=== PATIENT | male | born 1985 | race Two or more races ===

== ENCOUNTER 2021-12-20 13:14 | Emergency (ER) | payer SELFPAY ==
--- NOTE | ~2021-12-20 | XR_ITS ---
EXAMINATION: XR SHOULDER, LEFT CLINICAL INFORMATION: Left shoulder pain with limited range of motion. COMPARISON: None TECHNIQUE: Three views of the left shoulder. FINDINGS: The bones and soft tissues are normal. No fracture. Glenohumeral and acromioclavicular alignment is anatomic with normal joint space. No abnormal soft tissue calcifications. XR/XR shoulder LT min 2V IMPRESSION: Unremarkable left shoulder.
[2021-12-20 14:07] VITALS: BP 124/80; PULSE 66; RESP 17; TEMP 36.1; O2SAT 98; BMI 29.0
--- NOTE | 2021-12-20 17:40 | ED.EXTPRO ---
HPI - Extremity Problem General Chief complaint: Extremity Injury, Upper Stated complaint: L shoulder inj Time Seen by Provider: 12/20/21 17:36 Source: patient Mode of arrival: ambulatory Limitations: no limitations History of Present Illness HPI Narrative: Apparently patient was jumping at [employer] [place] yesterday landed in the wrong way since then complaining of pain in left shoulder. Which increases on elevating his left arm above shoulder no motor weakness no numbness or tingling no neck pain no other injuries no prior history of shoulder pain Related Data Previous Rx's Medication Instructions Recorded ibuprofen 600 mg tablet 600 mg PO Q6H PRN pain #40 tabs 12/20/21 Allergies Allergy/AdvReac Type Severity Reaction Status Date / Time No Known Allergies Allergy Verified 12/20/21 17:40 Review of Systems Review of Systems: Yes all other systems are reviewed and are negative [facility] Social History Social History Advance Directives: No Advance Directives Information Provided: Yes Physical Exam Vital Signs: Vital Signs: Last Vital Signs Temp 97 F 12/20/21 14:07 Pulse 66 12/20/21 14:07 Resp 17 12/20/21 14:07 BP 124/80 12/20/21 14:07 Pulse Ox 98 12/20/21 14:07 O2 Del Method 12/20/21 14:07 BMI result Body Mass Index 29.0 Appearance: Alert. Oriented X3. No acute distress. Eyes: PERRLA, No Nystagmus ENT: Pharynx normal. Oral Mucosa moist Neck: Normal inspection. Neck supple. No midline tenderness CVS: Normal heart rate and rhythm. Pulses normal. Respiratory: No respiratory distress. Equal air entry bilateral, Abdomen: Soft and nontender. Bowel sounds are present, no mass palpable, no CVA tenderness Skin: Skin warm and dry. Normal skin color. Normal skin turgor. Extremities: Left shoulder diffuse tenderness in rotator cuff area increases on abduction, open can test please positive for rotator cuff injury Neuro: Oriented X 3. No motor deficit. No sensory deficit. MDM - Extremity (Nontraumatic) MDM Narrative Medical decision making narrative: Clinically patient has left rotator cuff tendinitis will give sling ibuprofen for pain advised to follow with ortho if not better in 2 weeks Discharge Plan Discharge Clinical Impression: Strain of left rotator cuff capsule Patient Disposition: Home, Self-Care Instructions: Rotator Cuff Injury (ED), Rotator Cuff Injury Exercises (DC) Additional Instructions: Wear sling, rest your left shoulder apply ice Ibuprofen for pain Follow with orthopedics if not better Prescriptions: New ibuprofen 600 mg tablet 600 mg PO Q6H PRN (Reason: pain) Qty: 40 0RF Referrals: Harley Bailey MD [Physician] - 2 weeks Stand Alone Forms: Work/School Release
--- OUTSIDE RECORDS SUMMARY | 2021-12-20 17:56 | XMS_ITS | Continuity of Care Document ---
:1985 Author Organization [facility] Address [address] [place] [id number]- Care Team Providers Name Role Phone Not on Staff, PCP Primary Care Physician Unavailable Encounter [facility] Date(s): 02/04/19 - 02/05/[address] [address]- [facility] Discharge Disposition: A-D/C Home Attending Physician: Samantha Frausto MD Admitting Physician: Samantha Frausto MD Referring Physician: Not on Staff, Referring MD Allergies, Adverse Reactions, Alerts Substance Reaction Severity Status NKA Active Medications raNITIdine 150 mg oral capsule 1 capsule = 150 mg, By Mouth, 2 times a day, # 60 capsule, 0 Refills, Maintenance, 11/18/18 14:53:55EDT, Capsule Start Date: 11/18/18 Stop Date: 12/18/18 Status: Ordered Vital Signs Most recent to oldest 1 2 3 [Reference Range]: Weight 94.5 kg 94.5 kg (02/05/19 12:53 AM) (02/04/19 4:23 PM) Oxygen Saturation [94-100 %] 99 % 98 % 100 % (02/05/19 12:53 AM) (02/04/19 6:34 PM) (02/04/19 4: 23 PM) Pulse Rate [55-90 bpm] 71 bpm 96 bpm 90 bpm (02/05/19 12:53 AM) *H* (02/04/19 4:23 PM) (02/04/19 6:34 PM) Blood Pressure [90-138/55-84 140/78 mm Hg 132/70 mm Hg 130 /78 mm Hg mm Hg] *H* (02/04/19 6:34 PM) (02/04/19 4:23 PM) (02/05/19 12:53 AM) Respiratory Rate [16-30 18 br/min 18 br/min 18 br/mi n br/min] (02/05/19 12:53 AM) (02/04/19 6:34 PM) (02/04/19 4: 23 PM) Temperature [96.8-100.4 DegF] 98.2 DegF 97.8 DegF (02/05/19 12:53 AM) (02/04/19 4:23 PM) Mode of Delivery (Oxygen) Room air Room air Room a ir (02/05/19 12:53 AM) (02/04/19 6:34 PM) (02/04/19 4: 23 PM) Blood pressure sites Arm, left Arm, right Arm, left (02/05/19 12:53 AM) (02/04/19 6:34 PM) (02/04/19 4: 23 PM) Temperature Route Oral Oral (02/05/19 12:53 AM) (02/04/19 4:23 PM) Dry Weight 94.5 kg 94.5 kg (02/05/19 12:53 AM) (02/04/19 4:23 PM) Social History Social History Type Response Tobacco Use: 4 or less cigarettes(le ss than 1/4 pack)/day in last 30 days. Sex
--- OUTSIDE RECORDS SUMMARY | 2021-12-20 17:56 | XMS_ITS | Continuity of Care Document ---
:1985 Author Organization [facility] Address [address] [place] [address]- Care Team Providers Name Role Phone Ramin Sauceda MD Primary Care Physician [phone] Encounter [facility] [place] Date(s): 11/23/19 - 11/23/[address] [address]- [facility] Encounter Diagnosis Suspected 2019 novel coronavirus infection (Final) - 11/23/19 Discharge Disposition: A-D/C Home Attending Physician: Noel López MD Admitting Physician: Noel López MD Referring Physician: Not on Staff, Referring MD Allergies, Adverse Reactions, Alerts Substance Reaction Severity Status NKA Active Medications Lidoderm 5% film 1 patch, Topically, Daily, # 30 patch, 0 Refills, Maintenance, 08/23/19 9:23:00 EDT, [id number], 1 patch Topically Daily, 168, cm, 08/23/19 7:33:00 EDT, Height, 100.2, kg, 08/23/19 7:33:00 EDT,Dry Weight Start Date: 08/23/19 Status: OrderedraNITIdine 150 mg oral capsule 1 capsule = 150 mg, By Mouth, 2 times a day, # 60 capsule, 0 Refills, Maintenance, 11/18/18 14:53:55EDT, Capsule Start Date: 11/18/18 Stop Date: 12/18/18 Status: Ordered Vital Signs Most recent to oldest [Reference Range]: 1 2 Oxygen Saturation [94-100 %] 100 % 100 % (11/23/19 12:31 PM) (11/23/19 8:58 AM) Pulse Rate [55-90 bpm] 102 bpm 108 bpm *H* *H* (11/23/19 12:31 PM) (11/23/19 8:58 AM) Blood Pressure [90-138/55-84 mm Hg] 128/77 mm Hg 141/ 81 mm Hg (11/23/19 12:31 PM) *H* (11/23/19 8:58 AM) Respiratory Rate [16-30 br/min] 18 br/min 18 br/mi n (11/23/19 12:31 PM) (11/23/19 8:58 AM) Temperature [96.8-100.4 DegF] 99.2 DegF 99.7 DegF (11/23/19 12:31 PM) (11/23/19 8:58 AM) Mode of Delivery (Oxygen) Room air Room air (11/23/19 12:31 PM) (11/23/19 8:58 AM) Blood pressure sites Arm, right Arm, right (11/23/19 12:31 PM) (11/23/19 8:58 AM) Temperature Route Oral Oral (11/23/19 12:31 PM) (11/23/19 8:58 AM) Social History Social History Type Response Tobacco Use: 4 or less cigarettes(le ss than 1/4 pack)/day in last 30 days. Sex
--- OUTSIDE RECORDS SUMMARY | 2021-12-20 17:57 | XMS_ITS | Continuity of Care Document ---
:1985 Author Organization [facility] Address [address] [place] [address]- Care Team Providers Name Role Phone Ramin Sauceda MD Primary Care Physician [phone] Encounter [facility] [place] Date(s): 07/04/20 - 07/04/[address] [address]- Encounter Diagnosis COVID-19 virus infection (Final) - 07/04/20 Fever (Final) - 07/04/20 Discharge Disposition: A-D/C Home Attending Physician: Alisson Perez MD Admitting Physician: Alisson Perez MD Referring Physician: Not on Staff, Referring MD Allergies, Adverse Reactions, Alerts Substance Reaction Severity Status NKA Active Medications Acetaminophen Tablet 975 mg, Tablet, By Mouth, Once, STAT, 07/04/20 11:30:00 EDT, Stop date 07/04/20 11:30:00 EDT Start Date: 07/04/20 Stop Date: 07/04/20 Status: CompletedBactrim DS 800 mg-160 mg oral tablet 1 tablet, By Mouth, 2 times a day, for 5 days, # 10 tablet, 0 Refills, Acute 07/08/20 11:32:00 EDT, 07/03/20 11:32:00 EDT, Tablet, [id number], Partial fill upon patient request if the prescription is for a schedule II opioid drug., 1 tablet By... Start Date: 07/03/20 Stop Date: 07/08/20 Status: Orderedfenofibrate 48 mg oral tablet 1 capsule, By Mouth, Daily, # 30 capsule, 0 Refills, Maintenance, 05/10/20 10:59:00 EST, Tablet, Partial fill upon patient request if the prescription is for a schedule II opioid drug. Start Date: 05/10/20 Status: Orderedlidocaine 5% topical film 1 patch, Topically, Daily, PRN Pain , Mild, remove after 12 hours, # 10 patch, 0 Refills, Maintenance, 02/01/20 20:04:00 EST, Film, [facility]/pharmacy #[id number], Partial fill upon patient request if the prescription is for a schedule II opioid drug., 1 patch To... Start Date: 02/01/20 Stop Date: 02/08/20 Status: OrderedLidoderm 5% film 1 patch, Topically, Daily, # 30 patch, 0 Refills, Maintenance, 08/23/19 9:23:00 EDT, [facility]/pharmacy #[id number], 1 patch Topically Daily, 168, cm, 08/23/19 7:33:00 EDT, Height, 100.2, kg, 08/23/19 7:33:00 EDT,Dry Weight Start Date: 08/23/19 Status: OrderedmetFORMIN 500 mg oral tablet 1 tablet = 500 mg, By Mouth, 2 times a day, # 60 tablet, 0 Refills, Maintenance, 05/10/20 10:59:00 EST, Tablet, Partial fill upon patient request if the prescription is for a schedule II opioid drug. Start Date: 05/10/20 Status: OrderedoxyCODONE 5 mg oral tablet 5 mg, 1, tablet, By Mouth, Every 6 hours, PRN, for 3 days, For severe pain, # 4 tablet, Refills 0, Tot. Refills 0, Acute 07/06/20 11:31:00 EDT, as needed for pain, 07/03/20 11:31:00 EDT, Route to Pharmacy Electronically, [facility]/pharmacy #[id number], Partial fi... Start Date: 07/03/20 Stop Date: 07/06/20 Status: OrderedraNITIdine 150 mg oral capsule 1 capsule = 150 mg, By Mouth, 2 times a day, # 60 capsule, 0 Refills, Maintenance, 11/18/18 14:53:55EDT, Capsule Start Date: 11/18/18 Stop Date: 12/18/18 Status: OrderedTylenol 325 mg oral tablet 650 mg, 2, tablet, By Mouth, Every 6 hours, PRN, Refills 0, Maintenance, Temperature, 05/11/20 10:14:00 EDT, Partial fill upon patient request if the prescription is for a schedule II opioid drug. Start Date: 05/11/20 Status: Ordered Results Orders for Microbiology Reports Name Date Urine Culture (URINE CULTURE) 07/04/20 Microbiology Reports TEST:Urine Culture STATUS:Unauthenticated BODY SITE: SOURCE:URINE COLLECTED DATE/TIME:07/04/20 1:20 PMUrine Culture SPECIMEN DESCRIPTION : URINE CLEAN CATCH/MIDSTREAM SPECIAL REQUESTS : NONE Reflexed from [id number] REPORT STATUS : PRELIMINARY REPORT Radiology Reports Exam Date Time Procedure Performing Provider Status 07/04/20 8:41 PM Chest Portable Fitting , [place]; Auth (Verified) Notes:(Chest Portable) Reason For Exam: Shortness of BreathRESULT: Chest Portable Chest Portable Hx of Present Illness: temp today; Reason: Shortness of Breath; Clinical Question(s): CHF COMPARISON: 03/20/2020 FINDINGS: LINES AND TUBES: None. LUNGS AND PLEURA: Clear lungs. Normal pulmonary vascularity. No pleural effusion. No pneumothorax. HEART, MEDIASTINUM AND CRISTINE: Heart is normal in size. Normal upper mediastinal and hilar contour. BONES AND SOFT TISSUES: No acute abnormality. IMPRESSION: No acute abnormality. WSN: [id number] Ordering Physician: Andres Lemons Dictated By: Nicola Padilla MD Dictated Date/Time: 07/04/20 8:49 pm Reviewed By: Nicola Padilla MD Signed By: Nicola Padilla MD Signed Date/Time: 07/04/20 8:49 pm Transcribed By: ARAM Transcribed Date/Time: 07/04/20 8:44 pm Vital Signs Most recent to oldest [Reference 1 2 3 Range]: Weight 109 kg 109 kg 109 kg (07/04/20 8:14 PM) (07/04/20 7:03 PM) (07/04/20 4:45 P M) Oxygen Saturation [94-100 %] 95 % 98 % 100 % (07/04/20 11:30 PM) (07/04/20 8:14 PM) (07/04/20 4:29 PM) Pulse Rate [55-90 bpm] 97 bpm 130 bpm 119 bpm *H* *H* *H* (07/04/20 11:30 PM) (07/04/20 8:14 PM) (07/04/20 4:29 PM) Blood Pressure [90-138/55-84 mm 102/51 mm Hg 106/55 mm Hg 138/69 mm Hg Hg] (07/04/20 11:30 PM) (07/04/20 8:14 PM) (07/04/20 4:29 PM) Respiratory Rate [16-30 br/min] 27 br/min 17 br/min 15 br/min (07/04/20 8:14 PM) (07/04/20 4:29 PM) *L* (07/04/20 12:33 PM ) Temperature [96.8-100.4 DegF] 100.9 DegF 99.3 DegF 10 0.7 DegF *H* (07/04/20 8:14 PM) *H* (07/04/20 11:30 PM) (07/04/20 4:13 P M) Mode of Delivery (Oxygen) Room air Room air Room a ir (07/04/20 11:30 PM) (07/04/20 8:14 PM) (07/04/20 4:29 PM) Blood pressure sites Arm, left Arm, left Arm, left (07/04/20 11:30 PM) (07/04/20 8:14 PM) (07/04/20 11:15 AM) Temperature Route Oral Oral Oral (07/04/20 11:30 PM) (07/04/20 8:14 PM) (07/04/20 4:13 PM) Dry Weight 109 kg 109 kg 109 kg (07/04/20 8:14 PM) (07/04/20 7:03 PM) (07/04/20 4:45 P M) Social History Social History Type Response Tobacco Use: 4 or less cigarettes(le ss than 1/4 pack)/day in last 30 days. Sex
--- OUTSIDE RECORDS SUMMARY | 2021-12-20 17:57 | XMS_ITS | Continuity of Care Document ---
:1985 Author Organization [facility] Address [address] [place] [address]- Care Team Providers Name Role Phone Komal WILLIAM, Ramin Primary Care Physician [phone] Encounter [facility] [place] Date(s): 05/07/20 - 05/07/[address] [address]- Discharge Disposition: A-D/C Home Attending Physician: Teresa Santana DO Admitting Physician: Teresa Santana DO Referring Physician: Not on Staff, Referring MD Allergies, Adverse Reactions, Alerts Substance Reaction Severity Status NKA Active Medications lidocaine 5% topical film 1 patch, Topically, Daily, PRN Pain , Mild, remove after 12 hours, # 10 patch, 0 Refills, Maintenance, 02/01/20 20:04:00 EST, Film, [id number], Partial fill upon patient request [...] 7:33:00 EDT,Dry Weight Start Date: 08/23/19 Status: OrderedMotrin Tablet Refills 0, Maintenance, 02/01/20 11:39:00 EST, Partial fill upon patient request if the prescriptionis for a schedule II opioid drug. Start Date: 02/01/20 Status: OrderedraNITIdine 150 mg oral capsule 1 capsule = 150 mg, By Mouth, 2 times a day, # 60 capsule, 0 Refills, Maintenance, 11/18/18 14:53:55EDT, Capsule Start Date: 11/18/18 Stop Date: 12/18/18 Status: Ordered Vital Signs Most recent to oldest 1 2 3 [Reference Range]: Height 168 cm 168 cm (05/07/20 12:12 PM) (05/07/20 11:43 AM) Weight 100.3 kg 100.3 kg (05/07/20 12:12 PM) (05/07/20 11:43 AM) Oxygen Saturation [94-100 %] 99 % 99 % 98 % (05/07/20 4:27 PM) (05/07/20 12:58 PM) (05/07/20 12 :12 PM) Pulse Rate [55-90 bpm] 78 bpm 76 bpm 85 bpm (05/07/20 4:27 PM) (05/07/20 12:58 PM) (05/07/20 12 :12 PM) Body Mass Index [18.5-24.99] 35.54 *>HHI* (05/07/20 11:43 AM) Blood Pressure [90-138/55-84 116/75 mm Hg 121/65 mm Hg 123 /72 mm Hg mm Hg] (05/07/20 4:27 PM) (05/07/20 12:58 PM) (05/07/20 12 :12 PM) Respiratory Rate [16-30 21 br/min 18 br/min 18 br/mi n br/min] (05/07/20 4:27 PM) (05/07/20 12:58 PM) (05/07/20 12 :12 PM) Temperature [96.8-100.4 98.4 DegF DegF] (05/07/20 11:43 AM) Mode of Delivery (Oxygen) Room air Room air Room a ir (05/07/20 4:27 PM) (05/07/20 12:58 PM) (05/07/20 12 :12 PM) Blood pressure sites Arm, right Arm, right Arm, right (05/07/20 4:27 PM) (05/07/20 12:58 PM) (05/07/20 11 :43 AM) Temperature Route Oral Oral (05/07/20 12:12 PM) (05/07/20 11:43 AM) Dry Weight 100.3 kg 100.3 kg (05/07/20 12:12 PM) (05/07/20 11:43 AM) Weight Obtained Via Standing scale (05/07/20 11:43 AM) Dry Weight Obtained Via Standing scale (05/07/20 11:43 AM) Social History Social History Type Response Tobacco Use: 4 or less cigarettes(le ss than 1/4 pack)/day in last 30 days. Sex
--- OUTSIDE RECORDS SUMMARY | 2021-12-20 17:57 | XMS_ITS | Continuity of Care Document ---
:1985 Author Organization [facility] Address [address] [place] [address]- Care Team Providers Name Role Phone Komal WILLIAM, Ramin Primary Care Physician [phone] Encounter [facility] [place] Date(s): 07/03/20 - 07/03/[address] [address]- Discharge Disposition: A-D/C Home Attending Physician: Jayant Castellanos DO Admitting Physician: Jayant Castellanos DO Referring Physician: Not on Staff, Referring MD Allergies, Adverse Reactions, Alerts Substance Reaction Severity Status NKA Active Medications Bactrim DS 800 mg-160 mg oral tablet 1 [...] patch, 0 Refills, Maintenance, 08/23/19 9:23:00 EDT, [facility]/pharmacy #[id number], 1 patch Topically Daily, 168, cm, [...] OrderedoxyCODONE 5 mg oral tablet 5 mg, Tablet, By Mouth, Once, STAT, 07/03/20 10:42:00 EDT, Stop date 07/03/20 10:42:00 EDT Start Date: 07/03/20 Stop Date: 07/03/20 Status: CompletedoxyCODONE 5 mg oral tablet 5 mg, 1, tablet, By Mouth, Every 6 hours, PRN, for 3 days, For severe pain, # 4 tablet, Refills 0, Tot. Refills 0, Acute 07/06/20 11:31:00 EDT, as needed for pain, 07/03/20 11:31:00 EDT, Route to Pharmacy Electronically, [facility]/pharmacy #[id number], Partial fi... Start Date: 07/03/20 Stop [...] opioid drug. Start Date: 05/11/20 Status: Ordered Vital Signs Most recent to oldest [Reference 1 2 3 Range]: Weight 98.3 kg 98.3 kg 98.3 kg (07/03/20 11:11 AM) (07/03/20 9:03 AM) (07/03/20 7:04 AM) Oxygen Saturation [94-100 %] 96 % 98 % 97 % (07/03/20 11:11 AM) (07/03/20 9:03 AM) (07/03/20 7:04 AM) Pulse Rate [55-90 bpm] 89 bpm 90 bpm 84 bpm (07/03/20 11:11 AM) (07/03/20 9:03 AM) (07/03/20 7:04 AM) Blood Pressure [90-138/55-84 mm 117/71 mm Hg 123/77 mm Hg 132/92 mm Hg Hg] (07/03/20 11:11 AM) (07/03/20 9:03 AM) (07/03/20 7:04 AM) Respiratory Rate [16-30 br/min] 18 br/min 18 br/min 18 br/min (07/03/20 11:11 AM) (07/03/20 10:49 AM) (07/03/20 9:03 AM) Temperature [96.8-100.4 DegF] 98.5 DegF 97.8 DegF (07/03/20 9:03 AM) (07/03/20 7:04 AM) Mode of Delivery (Oxygen) Room air Room air Room a ir (07/03/20 11:11 AM) (07/03/20 9:03 AM) (07/03/20 7:04 AM) Blood pressure sites Arm, left Arm, left Arm, left (07/03/20 11:11 AM) (07/03/20 9:03 AM) (07/03/20 7:04 AM) Temperature Route Oral Oral (07/03/20 9:03 AM) (07/03/20 7:04 AM) Dry Weight 98.3 kg 98.3 kg 98.3 kg (07/03/20 11:11 AM) (07/03/20 9:03 AM) (07/03/20 7:04 AM) Social History Social History Type Response Tobacco Use: 4 or less cigarettes(le ss than 1/4 pack)/day in last 30 days. Sex
--- OUTSIDE RECORDS SUMMARY | 2021-12-20 17:57 | XMS_ITS | Continuity of Care Document ---
:1985 Author Organization [facility] Address [address] [place] [address]- Care Team Providers Name Role Phone Not on Staff, PCP Primary Care Physician Unavailable Encounter [facility] [place] Date(s): 09/29/20 - 09/30/[address] [address]- Discharge Disposition: A-D/C Home Attending Physician: Alo Damon MD Admitting Physician: Alo Damon MD Referring Physician: Not on Staff, Referring MD Allergies, Adverse Reactions, Alerts Substance Reaction Severity Status NKA Active Medications fenofibrate 48 mg oral tablet 1 capsule, By [...] II opioid drug. Start Date: 05/10/20 Status: OrderedraNITIdine 150 mg oral capsule 1 [...] oldest [Reference 1 2 3 Range]: Weight 82 kg (09/29/20 10:22 PM) Oxygen Saturation [94-100 %] 100 % 100 % 98 % (09/30/20 10:44 AM) (09/30/20 6:22 AM) (09/30/20 2:15 AM) Pulse Rate [55-90 bpm] 66 bpm 66 bpm 81 bpm (09/30/20 10:44 AM) (09/30/20 6:22 AM) (09/30/20 2:15 AM) Blood Pressure [90-138/55-84 mm 115/62 mm Hg 129/66 mm Hg 122/68 mm Hg Hg] (09/30/20 10:44 AM) (09/30/20 6:22 AM) (09/30/20 2:15 AM) Respiratory Rate [16-30 br/min] 18 br/min 18 br/min 16 br/min (09/30/20 10:44 AM) (09/30/20 6:22 AM) (09/30/20 2:15 AM) Temperature [96.8-100.4 DegF] 98.3 DegF 98.3 DegF 97 .9 DegF (09/30/20 10:44 AM) (09/30/20 6:22 AM) (09/30/20 2:15 AM) Mode of Delivery (Oxygen) Room air Room air Room a ir (09/30/20 6:22 AM) (09/30/20 2:15 AM) (09/29/20 10:22 PM) Blood pressure sites Arm, left (09/29/20 10:22 PM) Temperature Route Oral Oral Oral (09/30/20 6:22 AM) (09/30/20 2:15 AM) (09/29/20 10:22 PM) Dry Weight 82 kg (09/29/20 10:22 PM) Social History Social History Type Response Tobacco Use: 4 or less cigarettes(le ss than 1/4 pack)/day in last 30 days. Sex
--- OUTSIDE RECORDS SUMMARY | 2021-12-20 17:57 | XMS_ITS | Continuity of Care Document ---
:1985 Author Organization [facility] Address [address] [place] [address]- Care Team Providers Name Role Phone Komal WILLIAM, Ramin Primary Care Physician [phone] Encounter [facility] [place] Date(s): 05/09/20 - 05/11/[address] [address]- Encounter Diagnosis Pain in abdomen on palpation (Final) - 05/10/20 Discharge Disposition: A-D/C Home Attending Physician: Jaguar Montes MD Admitting Physician: Madelin Ellison MD Referring Physician: Not on Staff, Referring [...] II opioid drug. Start Date: 05/10/20 Status: OrderedMorPHINE Inj 4 mg, Injection, IV Push Slowly, Every 4 hours for 1 days, PRN for Pain , Moderate, and SBP greater than 100, Routine, 05/10/20 13:55:00 EST, Stop date 05/11/20 13:54:00 EDT Start Date: 05/10/20 Stop Date: 05/11/20 Status: CompletedraNITIdine 150 mg oral capsule 1 capsule = [...] [Reference Range]: Height 168 cm 168 cm 168 cm (05/11/20 3:59 AM) (05/10/20 11:03 PM) (05/10/20 7: 21 PM) Weight 82 kg 82.1 kg 82 kg (05/10/20 10:33 AM) (05/10/20 8:48 AM) (05/10/20 5: 14 AM) Oxygen Saturation [94-100 %] 97 % 100 % 96 % (05/11/20 6:24 AM) (05/11/20 3:59 AM) (05/10/20 11: 03 PM) Pulse Rate [55-90 bpm] 61 bpm 57 bpm 57 bpm (05/11/20 6:24 AM) (05/11/20 3:59 AM) (05/10/20 11: 03 PM) Body Mass Index [18.5-24.99] 29.05 *H* (05/10/20 10:33 AM) Blood Pressure [90-138/55-84 115/41 mm Hg 103/57 mm Hg 114 /50 mm Hg mm Hg] (05/11/20 6:24 AM) (05/11/20 3:59 AM) (05/10/20 11: 03 PM) Respiratory Rate [16-30 16 br/min 16 br/min 16 br/mi n br/min] (05/11/20 9:26 AM) (05/11/20 8:56 AM) (05/11/20 7:3 4 AM) Temperature [96.8-100.4 97.8 DegF 98.0 DegF 97.6 Deg F DegF] (05/11/20 6:24 AM) (05/11/20 3:59 AM) (05/10/20 11: 03 PM) Mode of Delivery (Oxygen) Room air Room air Room a ir (05/11/20 6:24 AM) (05/11/20 3:59 AM) (05/10/20 11: 03 PM) Blood pressure sites Arm, left Arm, right Arm, left (05/11/20 6:24 AM) (05/11/20 3:59 AM) (05/10/20 11: 03 PM) Temperature Route Oral Oral Oral (05/11/20 6:24 AM) (05/11/20 3:59 AM) (05/10/20 11: 03 PM) Dry Weight 82 kg 82 kg 82 kg (05/10/20 10:33 AM) (05/10/20 5:14 AM) (05/10/20 1: 01 AM) Weight Obtained Via Bed scale (05/10/20 8:48 AM) Social History Social History Type Response Tobacco Use: 4 or less cigarettes(le ss than 1/4 pack)/day in last 30 days. Sex
--- OUTSIDE RECORDS SUMMARY | 2021-12-20 17:57 | XMS_ITS | Continuity of Care Document ---
:1985 Author Organization [facility] Address [address] [place] [address]- Care Team Providers Name Role Phone Not on Staff, PCP Primary Care Physician Unavailable Encounter [facility] Date(s): 07/13/19 - 07/14/[address] [address]- [facility] Discharge Disposition: A-D/C Walkout Attending Physician: Not on Staff, Attending MD Admitting Physician: Not on Staff, Admitting MD Referring Physician: Not on Staff, Referring MD Allergies, Adverse Reactions, Alerts Substance Reaction Severity Status NKA Active Medications raNITIdine 150 mg oral capsule 1 capsule = 150 mg, By Mouth, 2 times a day, # 60 capsule, 0 Refills, Maintenance, 11/18/18 14:53:55EDT, Capsule Start Date: 11/18/18 Stop Date: 12/18/18 Status: Ordered Vital Signs Most recent to oldest [Reference Range]: 1 2 Weight 98.2 kg (07/13/19 10:44 PM) Oxygen Saturation [94-100 %] 100 % 100 % (07/13/19 10:44 PM) (07/13/19 10:35 PM) Pulse Rate [55-90 bpm] 90 bpm 99 bpm (07/13/19 10:44 PM) *H* (07/13/19 10:35 PM) Blood Pressure [90-138/55-84 mm Hg] 118/80 mm Hg (07/13/19 10:44 PM) Respiratory Rate [16-30 br/min] 18 br/min (07/13/19 10:44 PM) Temperature [96.8-100.4 DegF] 97.9 DegF (07/13/19 10:44 PM) Mode of Delivery (Oxygen) Room air Room air (07/13/19 10:44 PM) (07/13/19 10:35 PM) Blood pressure sites Arm, right (07/13/19 10:44 PM) Temperature Route Oral (07/13/19 10:44 PM) Dry Weight 98.2 kg (07/13/19 10:44 PM) Weight Obtained Via Standing scale (07/13/19 10:44 PM) Dry Weight Obtained Via Standing scale (07/13/19 10:44 PM) Social History Social History Type Response Tobacco Use: 4 or less cigarettes(le ss than 1/4 pack)/day in last 30 days. Sex
--- OUTSIDE RECORDS SUMMARY | 2021-12-20 17:57 | XMS_ITS | Continuity of Care Document ---
:1985 Author Organization [facility] Address [address] [place] [id number]- Care Team Providers Name Role Phone Not on Staff, PCP Primary Care Physician Unavailable Encounter [facility] Date(s): 08/22/19 - 08/23/[address] [address]- [facility] Encounter Diagnosis Back strain (Final) - 08/23/19 Discharge Disposition: A-D/C Home Attending Physician: Bobo Lazar MD Admitting Physician: Bobo Lazar MD Referring Physician: Not on Staff, Referring [...] Date: 11/18/18 Stop Date: 12/18/18 Status: Ordered Results Radiology Reports Exam Date Time Procedure Performing Provider Status 08/22/19 7:38 PM Chest 2 Views Frontal and Lat Alondra Mata (Verified) Notes:(Chest 2 Views Frontal and Lat) Reason For Exam: Chest Pain;Other:RESULT: Chest 2 Views Frontal and Lat Examination: Chest performed on 08/22/2019. History: Chest pain. Findings: Frontal and lateral views of the chest are submitted without comparison. The cardiac and mediastinal silhouettes are within normal limits. The lungs are clear. The osseous and soft tissue structures are unremarkable. Impression: There is no acute cardiopulmonary disease. WSN: [id number] Ordering Physician: Esther Chavez Dictated By: Yaritza Pack MD Dictated Date/Time: 08/22/19 7:42 pm Reviewed By: Yaritza Pack MD Signed By: Yaritza Pack MD Signed Date/Time: 08/22/19 7:42 pm Transcribed By: ARAM Transcribed Date/Time: 08/22/19 7:41 pm Vital Signs Most recent to oldest 1 2 3 [Reference Range]: Height 168 cm 168 cm 168 cm (08/23/19 10:08 AM) (08/23/19 7:33 AM) (08/22/19 3: 07 PM) Weight 100.2 kg 100.2 kg 100.2 kg (08/23/19 10:08 AM) (08/23/19 7:33 AM) (08/22/19 3: 07 PM) Oxygen Saturation [94-100 %] 99 % 100 % 100 % (08/23/19 10:08 AM) (08/23/19 7:33 AM) (08/23/19 5: 57 AM) Pulse Rate [55-90 bpm] 76 bpm 78 bpm 96 bpm (08/23/19 10:08 AM) (08/23/19 7:33 AM) *H* (08/23/19 5:57 AM ) Body Mass Index [18.5-24.99] 35.5 35.5 35. 5 *>HHI* *>HHI* *>HHI* (08/23/19 10:08 AM) (08/23/19 7:33 AM) (08/22/19 3: 07 PM) Blood Pressure [90-138/55-84 128/83 mm Hg 132/75 mm Hg 131 /75 mm Hg mm Hg] (08/23/19 10:08 AM) (08/23/19 7:33 AM) (08/23/19 5: 57 AM) Respiratory Rate [16-30 18 br/min 20 br/min 16 br/mi n br/min] (08/23/19 10:08 AM) (08/23/19 7:33 AM) (08/23/19 5: 57 AM) Temperature [96.8-100.4 DegF] 98.0 DegF 98.0 DegF 98 .1 DegF (08/23/19 7:33 AM) (08/23/19 5:57 AM) (08/23/19 3:4 1 AM) Mode of Delivery (Oxygen) Room air Room air Room a ir (08/23/19 10:08 AM) (08/23/19 7:33 AM) (08/23/19 5: 57 AM) Blood pressure sites Arm, left Arm, right Arm, right (08/23/19 10:08 AM) (08/23/19 7:33 AM) (08/23/19 3: 41 AM) Temperature Route Oral Oral Oral (08/23/19 7:33 AM) (08/23/19 3:41 AM) (08/22/19 3:0 7 PM) Dry Weight 100.2 kg 100.2 kg 100.2 kg (08/23/19 10:08 AM) (08/23/19 7:33 AM) (08/22/19 3: 07 PM) Weight Obtained Via Standing scale (08/22/19 3:07 PM) Dry Weight Obtained Via Standing scale (08/22/19 3:07 PM) Social History Social History Type Response Tobacco Use: 4 or less cigarettes(le ss than 1/4 pack)/day in last 30 days. Sex
--- OUTSIDE RECORDS SUMMARY | 2021-12-20 17:57 | XMS_ITS | Continuity of Care Document ---
:1985 Author Organization [facility] Address [address] [place] [id number]- Care Team Providers Name Role Phone Not on Staff, PCP Primary Care Physician Unavailable [facility]counter [facility] Date(s): 05/[facility]/19 - 05/22/[address] [address]- [facility] Discharge Disposition: A-D/C Home Attending Physician: Gavin Mcmillan MD Admitting Physician: Gavin Mcmillan MD Referring Physician: Not on Staff, Referring MD Allergies, Adverse Reactions, Alerts Substance Reaction Severity Status NKA Active Medications raNITIdine 150 mg oral capsule 1 capsule = 150 mg, By Mouth, 2 times a day, # 60 capsule, 0 Refills, Maintenance, 11/18/18 14:53:55EDT, Capsule Start Date: 11/18/18 Stop Date: 12/18/18 Status: Ordered Vital Signs Most recent to oldest [Reference Range]: 1 Oxygen Saturation [94-100 %] 98 % (05/22/19 5:06 PM) Pulse Rate [55-90 bpm] 103 bpm *H* (05/22/19 5:06 PM) Blood Pressure [90-138/55-84 mm Hg] 127/59 mm Hg (05/22/19 5:06 PM) Respiratory Rate [16-30 br/min] 20 br/min (05/22/19 5:06 PM) Temperature [96.8-100.4 DegF] 98.5 DegF (05/22/19 5:06 PM) Mode of Delivery (Oxygen) Room air (05/22/19 5:06 PM) Blood pressure sites Arm, right (05/22/19 5:06 PM) Temperature Route Oral (05/22/19 5:06 PM) Social History Social History Type Response Tobacco Use: 4 or less cigarettes(le ss than 1/4 pack)/day in last 30 days. Sex
--- OUTSIDE RECORDS SUMMARY | 2021-12-20 17:57 | XMS_ITS | Continuity of Care Document ---
:1985 Author Organization [facility] Address [address] [place] [address]- Care Team Providers Name Role Phone Not on Staff, PCP Primary Care Physician Unavailable Encounter [facility] Date(s): 01/30/21 - 01/30/[address] [address]- Encounter Diagnosis Folliculitis (Final) - 01/30/21 Discharge Disposition: A-D/C Home Attending Physician: Noel López MD Admitting Physician: Noel López MD Referring Physician: Not on Staff, Referring MD Allergies, Adverse Reactions, Alerts Substance Reaction Severity Status NKA Active Medications clindamycin 1% topical solution 1 application, Topically, 2 times a day, apply a thin film to affected area after washing (posteriorscalp, # 30 mL, 0 Refills, Maintenance, 01/30/21 15:50:00 EST, Solution, [id number], Partialfill upon patient request if the prescription is... Start Date: 01/30/21 Stop Date: 02/09/21 Status: Ordereddoxycycline hyclate 100 mg oral capsule 1 capsule = 100 mg, By Mouth, 2 times a day, for 7 days, # 14 capsule, 0 Refills, Acute 02/06/21 15:49:00 EST, 01/30/21 15:49:00 EST, Capsule, [id number], Partial fill upon patient request if the prescription is for a schedule II opioid drug.,... Start Date: 01/30/21 Stop Date: 02/06/21 Status: Orderedfenofibrate 48 mg oral tablet 1 [...] opioid drug. Start Date: 05/11/20 Status: Ordered Problem List Condition Effective Dates Status Health Status Informant Obese class I(Confirmed) Active Vital Signs Most recent to oldest 1 2 3 [Reference Range]: Height 168 cm 168 cm (01/30/21 8:13 AM) (01/30/21 7:11 AM) Weight 95.1 kg 95.1 kg (01/30/21 8:13 AM) (01/30/21 7:11 AM) Oxygen Saturation [94-100 %] 98 % 99 % 98 % (01/30/21 4:05 PM) (01/30/21 8:13 AM) (01/30/21 7:1 1 AM) Pulse Rate [55-90 bpm] 85 bpm 80 bpm 91 bpm (01/30/21 4:05 PM) (01/30/21 8:13 AM) *H* (01/30/21 7:11 AM ) Body Mass Index [18.5-24.99] 33.69 *>HHI* (01/30/21 7:11 AM) Blood Pressure [90-138/55-84 mm 132/71 mm Hg 136/73 mm Hg 133/75 mm Hg Hg] (01/30/21 4:05 PM) (01/30/21 8:13 AM) (01/30/21 7:1 1 AM) Respiratory Rate [16-30 br/min] 18 br/min 16 br/min 18 br/min (01/30/21 4:05 PM) (01/30/21 8:13 AM) (01/30/21 7:1 1 AM) Temperature [96.8-100.4 DegF] 99.4 DegF 98.4 DegF (01/30/21 8:13 AM) (01/30/21 7:11 AM) Mode of Delivery (Oxygen) Room air Room air Room a ir (01/30/21 4:05 PM) (01/30/21 8:13 AM) (01/30/21 7:1 1 AM) Blood pressure sites Arm, right Arm, right Arm, right (01/30/21 4:05 PM) (01/30/21 8:13 AM) (01/30/21 7:1 1 AM) Temperature Route Oral Oral (01/30/21 8:13 AM) (01/30/21 7:11 AM) Dry Weight 95.1 kg 95.1 kg (01/30/21 8:13 AM) (01/30/21 7:11 AM) Weight Obtained Via Standing scale (01/30/21 7:11 AM) Dry Weight Obtained Via Standing scale (01/30/21 7:11 AM) Social History Social History Type Response Tobacco Use: 4 or less cigarettes(le ss than 1/4 pack)/day in last 30 days. Sex
[2021-12-20] MEDS: oxyCODONE HCl Immed Release 5 MG TABLET 10 MG PO (18:10)
== END 2021-12-20 19:03 | disposition home or self-care (01) ==
PROVIDERS: Emergency Provider Internal Medicine
DX: S46.012A Strain of muscle(s) and tendon(s) of the rotator cuff of left shoulder, initial encounter (principal); Y33.XXXA Other specified events, undetermined intent, initial encounter; Y93.9 Activity, unspecified; Y92.9 Unspecified place or not applicable; Y99.9 Unspecified external cause status
CPT/HCPCS: 73030; 99283

== ENCOUNTER 2023-05-04 19:46 | Emergency (ER) | payer MEDICAID, SELFPAY ==
[2023-05-04 19:49] VITALS: BP 141/74; PULSE 87; RESP 18; TEMP 36.6; O2SAT 96; BMI 29.0
[2023-05-04 20:09] LABS: MANUAL DIFF FLAG NO
[2023-05-04 20:11] LABS: Basophils Absolute Auto 0.1 X10*3/uL (0.0-0.2); Basophils Percent Auto 0.6 % (0-2); Eosinophils Absolute Auto 0.1 X10*3/uL (0.0-0.4); Eosinophils Percent Auto 1.3 % (0-4); Hematocrit 39.1 % (42.0-52.0); Hemoglobin 14.1 g/dl (14.0-18.0); Imm Gran Abs Auto 0.02 X10*3/uL (0.00-0.03); Imm Gran Pct Auto 0.2 % (0.0-0.4); Lymphocytes Absolute Auto 2.5 X10*3/uL (1.2-4.9); Lymphocytes Percent Auto 29.1 % (20-40); Mean Corpuscular HGB Conc 36.1 g/dl (31.0-36.0); Mean Corpuscular Hemoglobin 30.6 pg (27.0-33.0); Mean Corpuscular Volume 84.8 fL (80.0-98.0); Mean Platelet Volume 10.7 fL (9.4-12.4); Monocytes Absolute Auto 0.5 X10*3/uL (0.1-1.2); Monocytes Percent Auto 6.1 % (2-11); Neutrophils Absolute Auto 5.4 x10*3/uL (2.0-8.3); Neutrophils Percent Auto 62.7 % (45-73); Platelet Count 226 X10*3/uL (160-400); Red Blood Count 4.61 X10*6/uL (4.60-5.80); Red Cell Distribution Width 11.9 % (11.0-16.0); White Blood Count 8.6 X10*3/uL (4.8-10.8)
[2023-05-04 20:26] LABS: Alanine Aminotransferase 29 U/L (0-40); Albumin Level 4.3 g/dL (3.5-5.0); Alkaline Phosphatase 69 U/L (39-117); Anion Gap 12 (12-20); Aspartate Amino Transferase 25 U/L (5-37); Bilirubin Total 0.4 mg/dL (0.0-1.0); Blood Urea Nitrogen 12 mg/dL (9-16); Calcium 9.6 mg/dL (8.4-10.2); Carbon Dioxide 25 mmol/L (22-29); Chloride 106 mmol/L (96-108); Creatinine Clr Calc Pharmacy 110.3; Estimated Glomerular Filt Rate > 60; Glucose Random 177 mg/dL (60-115); Potassium 3.9 mmol/L (3.3-5.1); Sodium 139 mmol/L (135-145)
[2023-05-04 22:09] VITALS: BP 121/71; PULSE 80; RESP 16; TEMP 36.8; O2SAT 98
--- NOTE | 2023-05-04 22:14 | ED_ITS ---
HPI - Abdominal Pain General Chief Complaint: Abdominal Pain Stated Complaint: abd and back pain, nely when using bathroom Time Seen by Provider: 05/04/23 22:06 Source: patient Mode of arrival: ambulatory Limitations: no limitations History of Present Illness HPI narrative: Patient been constipated for last 1 week complaining of pain in the rectum and moving the bowels with bright red blood today no nausea no vomiting no fever or chills Related Data Previous Rx's Medication Instructions Recorded hydrocortisone acetate 25 mg 25 mg GA BEDTIME #12 ea 05/04/23 rectal suppository (Anusol-HC) polyethylene glycol 3350 17 17 g PO DAILY #510 grams 05/04/23 gram/dose oral powder (Miralax) Allergies Allergy/AdvReac Type Severity Reaction Status Date / Time No Known Allergies Allergy Verified 05/04/23 19:55 Review of Systems Review of Systems Yes all other systems are reviewed and are negative [facility] Social History Social History Smoked in Last 30 Days: No Use of substances other than those prescribed or required for medical reasons: No Advance Directives: No Advance Directives Information Provided: No Physical Exam ED Vital Signs: Vital Signs - 24 hr 05/04/23 19:49 05/04/23 22:09 05/04/23 23:20 Temperature 97.8 F 98.2 F 98 F Pulse Rate 87 80 80 Respiratory Rate 18 16 18 Blood Pressure 141/74 H 121/71 108/57 L Pulse Oximetry 96 98 98 Oxygen Delivery Method Room Air Room Air Room Air BMI result Body Mass Index 29.0 Appearance: Alert. Oriented X3. No acute distress. Eyes: No pallor or icterus ENT: Pharynx normal. Oral Mucosa moist Neck: Normal inspection. Neck supple. CVS: Normal heart rate and rhythm. Pulses normal. Respiratory: No respiratory distress. Equal air entry bilateral, no wheezing/rales/rhonchi Abdomen: Soft and nontender. Bowel sounds are present, no mass palpable, no CVA tenderness rectum: Internal hemorrhoid nonbleeding tender Skin: Skin warm and dry. Normal skin color. Normal skin turgor. Extremities: No lower extremity edema. No calf tenderness Neuro: Oriented X 3. No motor deficit. No sensory deficit.No cerebellar signs , cranial nerves II-XII intact Medical Decision Making Lab Data 05/04/23 20:03 05/04/23 20:03 Labs: Lab Results 05/04/23 05/04/23 Range/Units 20:03 22:17 WBC 8.6 (4.8-10.8) X10*3/uL RBC 4.61 (4.60-5.80) X10*6/uL Hgb 14.1 (14.0-18.0) g/dl Hct 39.1 L (42.0-52.0) % MCV 84.8 (80.0-98.0) fL MCH 30.6 (27.0-33.0) pg MCHC 36.1 H (31.0-36.0) g/dl RDW 11.9 (11.0-16.0) % Plt Count 226 (160-400) X10*3/uL MPV 10.7 (9.4-12.4) fL Immature Gran % (Auto) 0.2 (0.0-0.4) % Neut % (Auto) 62.7 (45-73) % Lymph % (Auto) 29.1 (20-40) % [place] % (Auto) 6.1 (2-11) % Eos % (Auto) 1.3 (0-4) % Baso % (Auto) 0.6 (0-2) % Lymph # (Auto) 2.5 (1.2-4.9) X10*3/uL [place] # (Auto) 0.5 (0.1-1.2) X10*3/uL Eos # (Auto) 0.1 (0.0-0.4) X10*3/uL Baso # (Auto) 0.1 (0.0-0.2) X10*3/uL Abs Immat Gran (auto) 0.02 (0.00-0.03) X10*3/uL Absolute Neuts (auto) 5.4 (2.0-8.3) x10*3/uL Absolute Nucleated RBC 0.000 (0.0-0.012) X10*3/uL Nucleated RBC % (auto) 0.0 (0.0-0.2) /100WBC Sodium 139 (135-145) mmol/L Potassium 3.9 (3.3-5.1) mmol/L Chloride 106 (96-108) mmol/L Carbon Dioxide 25 (22-29) mmol/L Anion Gap 12 (12-20) BUN 12 (9-16) mg/dL Creatinine 0.92 (0.5-1.4) mg/dL Estim Creat Clear Calc 110.3 Estimated GFR > 60 Random Glucose 177 H (60-115) mg/dL Calcium 9.6 (8.4-10.2) mg/dL Total Bilirubin 0.4 (0.0-1.0) mg/dL AST 25 (5-37) U/L ALT 29 (0-40) U/L Alkaline Phosphatase 69 (39-117) U/L Total Protein 8.0 (6.5-8.0) g/dL Albumin 4.3 (3.5-5.0) g/dL Urine Color Yellow Urine Appearance Clear Urine pH 6.0 (5.0-9.0) Ur Specific [place] >= 1.030 H (1.005-1.025) Urine Protein Negative (Neg-Trace) mg/dL Urine Glucose (UA) Negative (Negative) mg/dL Urine Ketones Trace (Negative) mg/dL Urine Blood Negative (Negative) Urine Nitrite Negative (Negative) Ur Leukocyte Esterase Negative (Negative) Urine RBC 0-2 (0-2) /HPF Urine WBC 0-5 (0-5) /HPF Ur Squamous Epith Cells 0-2 (0-2) /HPF Urine Bacteria None Seen (None Seen) Hyaline Casts 0-2 (0-2) /LPF Medications Administered Discontinued Medications Generic Name Dose Route Start Last Admin Trade Name Freq PRN Reason Stop Dose Admin Bisacodyl 10 mg 05/04/23 22:27 05/04/23 22:39 Bisacodyl 5 Mg Tablet.Dr PO 05/04/23 22:28 10 mg ONCE ONE Administration Magnesium Hydroxide 30 ml 05/04/23 22:27 05/04/23 22:39 Milk Of Magnesia 30 Ml Oral.Susp PO 05/04/23 22:28 30 ml ONCE ONE Administration Tramadol HCl 50 mg 05/04/23 23:22 05/04/23 23:27 Tramadol Hcl 50 Mg Tablet PO 05/04/23 23:23 50 mg ONCE ONE Administration Discharge Plan Discharge Clinical Impression: Constipation, Hemorrhoids, internal Patient Disposition: Home, Self-Care Instructions: Constipation (ED), Hemorrhoids (ED) Additional Instructions: Drink plenty of fluids Avoid constipation Medicine for constipation as prescribed Suppository for hemorrhoids Prescriptions: New polyethylene glycol 3350 [Miralax] 17 gram/dose powder 17 g PO DAILY Qty: 510 0RF hydrocortisone acetate [Anusol-HC] 25 mg suppository 25 mg GA BEDTIME Qty: 12 0RF Stand Alone Forms: Work/School Release Interventions: ED Discharge Assessment Last Done: 05/04/23 23:29 Discharge Date/Time: 05/04/23 23:32
[2023-05-04 22:25] LABS: Appearance Urine Clear; Color Urine Yellow; Glucose Urine UA Negative (Negative); Leukocyte Esterase Urine Negative (Negative); Nitrite Urine Negative (Negative); Specific Gravity - Urine >= 1.030 (1.005-1.025); Urine Blood Negative (Negative); Urine Ketones Trace mg/dL (Negative); Urine Protein Negative (Neg-Trace)
[2023-05-04 22:30] LABS: Bacteria Urine None Seen (None Seen); Hyaline Casts Urine 0-2 /LPF (0-2); RBC Urine 0-2 /HPF (0-2); Squamous Epithelial Cell Urine 0-2 /HPF (0-2); WBC Urine 0-5 /HPF (0-5)
[2023-05-04] MEDS: bisacodyL 5 MG TABLET.DR 10 MG PO (22:39)
[2023-05-04] MEDS: Milk of Magnesia 30 ML ORAL.SUSP PO (22:39)
[2023-05-04 23:20] VITALS: BP 108/57; PULSE 80; RESP 18; TEMP 36.6; O2SAT 98
[2023-05-04] MEDS: traMADoL HCL 50 MG TABLET PO (23:27)
== END 2023-05-04 23:32 | disposition home or self-care (01) ==
PROVIDERS: Emergency Provider Internal Medicine
DX: K59.00 Constipation, unspecified (principal); K64.8 Other hemorrhoids
CPT/HCPCS: 36415; 80053; 81001; 85025; 99283; 99284

== ENCOUNTER 2023-08-17 08:11 | Emergency (ER) | payer OTHER, SELFPAY ==
[2023-08-17 08:27] VITALS: BP 123/75; PULSE 79; RESP 18; TEMP 36.6; O2SAT 97; BMI 33.9
--- NOTE | 2023-08-17 09:15 | ED.GENADULT ---
HPI - General Adult General Chief complaint: Skin/Abscess/Foreign Body Stated complaint: Pain near tailbone Time Seen by Provider: 08/17/23 09:14 Source: patient Mode of arrival: ambulatory Limitations: no limitations History of Present Illness ED Provider: Karmen Isabel PA-C HPI narrative: Patient is a 38 year old assigned male at with a history of DM presenting to the emergency department today with an abscess on his buttock. Patient states that over the last 2 days he has noticed a lump on his left buttock that is causing him increased pain Patient denies any dizziness, lightheadedness, abdominal pain, nausea, vomiting, fever, chills, blurry vision, double vision, loss of vision, chest pain, difficulty breathing, shortness of breath, back pain, night sweats, pain with urination, increased urinary frequency, increased urinary urgency, blood in his urine or stool, syncope or a near syncopal episode, recent trauma or falls, bowel incontinence, bladder incontinence, or any other complaints at this time. Onset (ago): day(s) (2) Location: buttocks and left Radiation: non-radiation Severity: mild Severity scale (1-10): 3 Quality: aching and dull Pain Consistency: constant Relieving factors: none Exacerbating factors: none Associated symptoms: denies other symptoms Treatments prior to arrival: none Related Data Previous Rx's ?Medication ?Instructions ?Recorded ibuprofen 600 mg tablet 600 mg PO Q6H PRN pain #40 tabs 12/20/21 hydrocortisone acetate 25 mg 25 mg [place] BEDTIME #12 ea 05/04/23 rectal suppository (Anusol-HC) polyethylene glycol 3350 17 17 g PO DAILY #510 grams 05/04/23 gram/dose oral powder (Miralax) cephalexin 500 mg capsule 500 mg PO Q6H 7 days #28 caps 08/17/23 doxycycline hyclate 100 mg tablet 100 mg PO BID 7 days #14 tabs 08/17/23 Allergies Allergy/AdvReac Type Severity Reaction Status Date / Time No Known Allergies Allergy Verified 08/17/23 08:31 Review of Systems Constitutional: Constitutional: Reports no additional constitutional complaints, Denies chills, Denies fever(s) and Denies night sweats Eyes: Eyes: Reports no additional eye complaints, Denies blurry vision, Denies change in vision, Denies diplopia, Denies eye discharge, Denies loss of vision and Denies eye pain ENT: Denies dizziness Cardiovascular: Cardiovascular: Reports no additional cardiovascular complaints, Denies chest pain, Denies lightheadedness, Denies Loss of Consciousness and Denies dyspnea Respiratory: Respiratory: Reports no additional respiratory complaints and Denies dyspnea Gastrointestinal: Gastrointestinal: Reports no additional gastrointestinal complaints, Denies abdominal pain, Denies melena, Denies hematochezia, Denies change in bowel habits and Denies change in stool character Comments: left buttock pain Genitourinary: Genitourinary: Reports no additional male genitourinary complaints, Denies hematuria, Denies oliguria, Denies difficulty urinating, Denies dysuria, Denies urinary frequency, Denies urinary hesitancy, Denies urinary incontinence and Denies urinary urgency Musculoskeletal: Musculoskeletal: Reports no additional musculoskeletal complaints, Denies numbness and Denies tingling Neurologic: Denies dizziness, Denies loss of vision, Denies numbness and Denies tingling Psychiatric: Psychiatric: Reports no additional psychiatric complaints Endocrine: Endocrine: Reports no additional endocrine complaints Hematologic/Lymphatic: Hematologic/Lymphatic: Reports no additional hematologic/lymphatic complaints Allergic/Immunologic: Allergic/Immunologic: Reports no additional allergic/immunologic complaints PMFSH Past Medical History Attestation statement: The following information was validated with the patient. Source: old records reviewed and nursing notes reviewed Social History Social History Advance Directives: No Advance Directives Information Provided: No Do you have a plan to hurt others: No Plan Physical Exam ED Vital Signs: Vital Signs - 24 hr 08/17/23 08:27 08/17/23 09:59 08/17/23 10:08 Temperature 97.8 F 97.8 F 97.8 F Pulse Rate 79 66 66 Respiratory Rate 18 16 16 Blood Pressure 123/75 121/74 121/74 Pulse Oximetry 97 97 97 Oxygen Delivery Method Room Air Room Air Room Air BMI result Body Mass Index 33.9 Const General: cooperative, no acute distress, alert and awake Nutritional Appearance: well nourished Orientation/consciousness: patient oriented x3 Limitations: no limitations HENMT Head: Yes normal to inspection and Yes atraumatic Ears: hearing grossly normal bilaterally and external ears normal General nose exam: Normal external nose present, no nasal discharge noted and no epistaxis Face and sinus: Yes normal facial exam, No abrasion and No laceration Mouth: Normal oral and palatal mucosa present, no drooling and no muffled voice Eyes General: appearance normal, both eyes and all related structures Periorbital: periorbital findings normal Eyelids: Yes eyelids normal Conjunctivae: conjunctivae normal Pupils: Equal, round and reactive pupils present EOM: EOMs intact bilaterally Neck Neck: Yes normal visual inspection, Yes full ROM and Yes no lymphadenopathy Chest Chest palpation & inspection: normal inspection of the chest Resp Effort & Inspection: normal respiratory effort and able to speak in complete sentences GI Inspection: Yes normal to inspection Skin Full body images: 1. small abscess present - no active draining Neuro General: patient oriented x3 and moves all extremities Cranial nerves: Yes Equal, round and reactive pupils present Cognition (Neuro): normal cognition Motor exam (neuro): 5/5 motor strength present throughout Sensory Exam: Normal double simultaneous stimulation for sensation Coordination: [id number] test normal Extrem General: Yes normal to inspection, Yes full ROM and Yes capillary refill normal Psych Appearance: grossly normal Mental Status: mental status grossly normal Affect: normal affect Attitude: cooperative Thought process: Normal thought process present Thought content: Normal thought content present Insight: Good insight present (Psych) Medications Administered Discontinued Medications Generic Name Dose Route Start Last Admin Trade Name Walt PRN Reason Stop Dose Admin Cephalexin HCl 500 mg 08/17/23 09:29 08/17/23 09:54 Cephalexin 500 Mg Capsule PO 08/17/23 09:30 500 mg ONCE ONE Administration Doxycycline Monohydrate 100 mg 08/17/23 09:29 08/17/23 09:54 Doxycycline Monohydrate 100 Mg Capsule PO 08/17/23 09:30 100 mg ONCE ONE Administration Oxycodone HCl 5 mg 08/17/23 09:29 08/17/23 09:54 Oxycodone Hcl Immed Release 5 Mg Tablet PO 08/17/23 09:30 5 mg ONCE ONE Administration Procedures Abscess I/D Site: other (gluteal cleft) Side (if applicable): left Technique: needle aspiration Amount of fluid expressed (mL): 3 Sent for culture/gram staining?: No Irrigation: No Packing used?: none Medical Decision Making Medical Decision Making MDM Narrative: Patient is a 38 year old assigned male at with a history of DM presenting to the emergency department today with a buttock abscess. Patient's physical exam was as noted in the physical exam portion of this note. I explained my physical exam findings to the patient. I answered all questions asked by the patient. Patient's abscess was drained with a needle, without incident. I stressed the importance of the patient taking his medication as prescribed. I stressed the importance of the patient following up with his primary care provider and a general surgeon. I stressed the importance of the patient returning to the emergency department immediately if his symptoms were to worsen or if he were to develop any dizziness, shortness of breath, difficulty breathing, chest pain, blurry vision, loss of vision, nausea, vomiting, abdominal pain, fever, chills, back pain, or any other complaints. Patient verbalized agreement and understanding with this treatment plan and discharge. Differential Diagnosis Differential Diagnoses: The differential diagnosis associated with the presentation includes Gluteal cleft abscess Pilonidal abscess Buttock abscess Admission/Observation Consideration of admission/observation: Escalation of care including admission/observation considered Patient would have been admitted to the hospital had his clinical presentation warranted hospital admission. Prescription Management I considered prescription management with: Antibiotic (patient prescribed an antibiotic for his pilonidal abscess) Discharge Plan Discharge Clinical Impression: Pilonidal abscess Patient Disposition: Home, Self-Care Instructions: Pilonidal Cyst (ED), Abscess Follow-up (ED) Additional Instructions: Follow up with your primary care provider and a general surgeon. Take your antibiotic as prescribed. Return to the emergency department immediately if your symptoms worsen or if you develop any dizziness, shortness of breath, difficulty breathing, chest pain, blurry vision, loss of vision, nausea, vomiting, abdominal pain, fever, chills, back pain, or any other complaints. Prescriptions: New cephalexin 500 mg capsule 500 mg PO Q6H 7 Days Qty: 28 0RF doxycycline hyclate 100 mg tablet 100 mg PO BID 7 Days Qty: 14 0RF No Action ibuprofen 600 mg tablet 600 mg PO Q6H PRN (Reason: pain) Qty: 40 0RF polyethylene glycol 3350 [Miralax] 17 gram/dose powder 17 g PO DAILY Qty: 510 0RF hydrocortisone acetate [Anusol-HC] 25 mg suppository 25 mg [place] BEDTIME Qty: 12 0RF Referrals: [facility] [place] [facility] Group] (Call to establish and follow up with a general surgeon.) [facility]] (Call to establish and follow up with a primary care provider. If you already have a primary care provider, please follow up with them.) [facility] [place]Provider Group] [facility] [facility] [Provider Group] Stand Alone Forms: Work/School Release Interventions: ED Discharge Assessment Last Done: 08/17/23 10:08 Discharge Date/Time: 08/17/23 10:09 Print Language: Qatari
[2023-08-17] MEDS: oxyCODONE HCl Immed Release 5 MG TABLET PO (09:54)
[2023-08-17] MEDS: Doxycycline Monohydrate 100 MG CAPSULE PO (09:54)
[2023-08-17] MEDS: cephALEXin 500 MG CAPSULE PO (09:54)
[2023-08-17 09:59] VITALS: BP 121/74; PULSE 66; RESP 16; TEMP 36.6; O2SAT 97
[2023-08-17 10:08] VITALS: BP 121/74; PULSE 66; RESP 16; TEMP 36.6; O2SAT 97
== END 2023-08-17 10:09 | disposition home or self-care (01) ==
PROVIDERS: Emergency Provider Emergency Medicine
DX: L02.31 Cutaneous abscess of buttock (principal); Z79.899 Other long term (current) drug therapy
CPT/HCPCS: 10060; 99283; 99284

== ENCOUNTER 2024-05-28 09:46 | Emergency (ER) | payer OTHER, SELFPAY ==
--- NOTE | ~2024-05-28 | XR_ITS ---
EXAMINATION: XR LUMBOSACRAL SPINE XR SACRUM CLINICAL INFORMATION: low back pain COMPARISON: None available. TECHNIQUE: Three views of the lumbosacral spine. 3 views of the sacrum/coccyx. FINDINGS: Trace right convex scoliosis, possibly positional. Normal lordosis. No fracture, compression deformity, traumatic subluxation, or suspicious bone lesion. There is normal alignment. Minimal disc degeneration noted diffusely most significant at L5-S1. Normal facet alignment without significant facet arthropathy. SI joints demonstrate mild periarticular sclerosis right greater than left, possibly indicating underlying inflammatory arthropathy. Correlation with pelvic CT may be of benefit. The sacrum appears intact. Sacral arches are intact. The coccyx is unremarkable in appearance. No soft tissue abnormalities. XR/XR lumbar spine 2-3V IMPRESSION: 1. No acute findings of the lumbar spine or sacrum. Very mild degenerative spondylosis. 2. SI joint findings which may represent inflammatory arthritis. Correlation with bony pelvic CT may be of benefit. Electronically signed by: Noel Cordova MD 05/28/2024 01:08 PM EDT
--- NOTE | ~2024-05-28 | XR_ITS ---
EXAMINATION: XR LUMBOSACRAL SPINE XR SACRUM CLINICAL INFORMATION: low back pain COMPARISON: None available. TECHNIQUE: Three views of the lumbosacral spine. 3 views of the sacrum/coccyx. FINDINGS: Trace right convex scoliosis, possibly positional. Normal lordosis. No fracture, compression deformity, traumatic subluxation, or suspicious bone lesion. There is normal alignment. Minimal disc degeneration noted diffusely most significant at L5-S1. Normal facet alignment without significant facet arthropathy. SI joints demonstrate mild periarticular sclerosis right greater than left, possibly indicating underlying inflammatory arthropathy. Correlation with pelvic CT may be of benefit. The sacrum appears intact. Sacral arches are intact. The coccyx is unremarkable in appearance. No soft tissue abnormalities. XR/XR sacrum coccyx min 2V IMPRESSION: 1. No acute findings of the lumbar spine or sacrum. Very mild degenerative spondylosis. 2. SI joint findings which may represent inflammatory arthritis. Correlation with bony pelvic CT may be of benefit. Electronically signed by: Noel Cordova MD 05/28/2024 01:08 PM EDT
[2024-05-28 10:03] VITALS: BP 113/71; PULSE 82; RESP 16; TEMP 36.3; O2SAT 97; BMI 32.3
--- NOTE | 2024-05-28 13:21 | ED_ITS ---
HPI - General Adult General Chief complaint: Back Pain/Injury Stated complaint: Low Back Pain Time Seen by Provider: 05/28/24 13:02 Source: patient Mode of arrival: ambulatory Limitations: no limitations History of Present Illness ED Provider: Antonio Dveries HPI narrative: 39 yold male with pmh of DM presents to the ED for left low back pain radiating down left leg. Patient fell on ice last month at work and has had pain ever since. Patient denies any IV drug use, immunocompromised disease, chronic steroid use, or urinary/bowel incontinence. Related Data Previous Rx's ?Medication ?Instructions ?Recorded ibuprofen 600 mg tablet 600 mg PO Q6H PRN pain #40 tabs 12/20/21 hydrocortisone acetate 25 mg 25 mg IA BEDTIME #12 ea 05/04/23 rectal suppository (Anusol-HC) polyethylene glycol 3350 17 17 g PO DAILY #510 grams 05/04/23 gram/dose oral powder (Miralax) cephalexin 500 mg capsule 500 mg PO Q6H 7 days #28 caps 08/17/23 doxycycline hyclate 100 mg tablet 100 mg PO BID 7 days #14 tabs 08/17/23 ketorolac 10 mg tablet 10 mg PO Q6H PRN pain 5 days #20 05/28/24 tabs prednisone 20 mg tablet 40 mg (2 x 20 mg) PO DAILY 5 days 05/28/24 #10 tabs Allergies Allergy/AdvReac Type Severity Reaction Status Date / Time No Known Allergies Allergy Verified 05/28/24 10:04 Review of Systems 2 Review of Systems: low back pain Yes all other systems are reviewed and are negative PMFSH Social History Social History Advance Directives: No Advance Directives Information Provided: Yes Physical Exam ED Vital Signs: Vital Signs - 24 hr 05/28/24 10:03 05/28/24 14:02 05/28/24 14:07 Temperature 97.3 F 97.0 F Pulse Rate 82 76 76 Respiratory Rate 16 18 18 Blood Pressure 113/71 131/68 131/68 Pulse Oximetry 97 97 97 Oxygen Delivery Method Room Air Room Air Room Air BMI result Body Mass Index 32.3 Const General: cooperative, healthy appearing, comfortable, no acute distress, well developed, alert, awake and Physically active Orientation/consciousness: patient oriented x3 HENMT Head: Yes normal to inspection, Yes No palpable skull fracture present, Yes normocephalic, Yes atraumatic and No abrasion Eyes General: appearance normal, both eyes and all related structures Visual Hanson: normal visual hanson by confrontation Alignment and Position: alignment normal Periorbital: periorbital findings normal Eyelids: Yes eyelids normal Conjunctivae: conjunctivae normal Sclerae: sclerae normal Corneas: corneas normal Pupils: Equal, round and reactive pupils present EOM: EOMs intact bilaterally Direct Ophthalmoscopy: normal light reflex Neck Neck: Yes normal visual inspection, Yes full ROM, Yes no lymphadenopathy, Yes no meningeal signs, Yes trachea midline, Yes supple, No anterior neck swelling and No tender Chest Chest palpation & inspection: normal inspection of the chest and normal palpation of entire chest wall Resp Effort & Inspection: normal respiratory effort and able to speak in complete sentences Auscultation: clear to auscultation bilaterally Cardio Jugular venous distension: no JVD Heart sounds: S1 normal heart sound present and S2 normal heart sound present GI Inspection: Yes normal to inspection Palpation (GI): Soft to palpation, not firm, nontender, no guarding and not rigid General: Yes no CVA tenderness Back/Spine/Pelvis Back: no CVA tenderness and back tenderness (left lumbar sacroc illiac tendenerness.) Back/spine/pelvis image: 2 1. tenderness on palpation. no rash, ecchymosis, erythema, or crepitus. Skin General skin exam: no rashes or lesions noted, elasticity normal and turgor normal Neuro General: patient oriented x3, gait normal, tone normal, moves all extremities, Normal light touch and pain sensation, no meningeal signs, no focal motor deficits, CN's II-XI intact bilaterally and normal sensation to monofilament Cranial nerves: Yes Equal, round and reactive pupils present Extrem General: Yes normal to inspection, Yes full ROM and Yes capillary refill normal Psych Appearance: grossly normal, well kempt and not disheveled Medications Administered Discontinued Medications Generic Name Dose Route Start Last Admin Trade Name Freq PRN Reason Stop Dose Admin Ketorolac Tromethamine 30 mg 05/28/24 13:19 05/28/24 13:59 Ketorolac Tromethamine 30 Mg/Ml Vial IM 05/28/24 13:20 30 mg ONCE ONE Administration Prednisone 40 mg 05/28/24 13:19 05/28/24 13:59 Prednisone 20 Mg Tablet PO 05/28/24 13:20 40 mg ONCE ONE Administration Medical Decision Making Medical Decision Making [facility] Narrative: 39-year-old male presents to ED for left lower back pain radiating down left lower extremity for about a month after fall. Patient denies any urinary/bowel incontinence, paralysis/ tingling of lower extremity dysuria, hematuria, abdominal pain, nuasea, vomitting, testiuclar pain, or saddle anesthesia. Patient denies any abdominal pain, nausea, or vomitting. Patient states no dysuria or hematuria. 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 NOt suspecting septic joint, cauda equina, epidural abscess, or tenosynovitis. NOt suspecting osteomyelitits, kidney stones, pylonephritits, or any other life threatening eitoloogies. Toradol and prednisonse ordered. patient made aware prednisone may elevate glucose and to stop if glucose gets too elevated. Differential Diagnosis Differential Diagnoses: The differential diagnosis associated with the presentation includes (arhtritis, fracture) Admission/Observation Consideration of admission/observation: Escalation of care including admission/observation considered Independent Interpretation I performed an independent interpretation of an: Plain X-Ray Radiology Impression Discussion of test interpretation with radiology: I have reviewed the radiologist's reading. Independent Historian Clinical information obtained from an independent historian. History obtained from or confirmed by: Other (patient) Prescription Management I considered prescription management with: Pain Medication Discharge Plan Discharge Clinical Impression: Lumbar radiculopathy, Sacroiliitis, Spondylosis Patient Disposition: Home, Self-Care Instructions: Lumbar Radiculopathy (ED), Sacroiliitis (ED) Additional Instructions: Recommend follow-up with your primary care provider for physical therapy referral if needed. Return to the ED immediately for any urinary/bowel incontinence, paralysis weakness of lower extremities, numbness of genital area. Abdominal pain, nausea, vomiting, fever, chills, or any other concerning symptoms. Do Not take aspirin or any other NSAIDs such as Motrin, ibuprofen, naproxen, leave, meloxicam, or celebrex. FINDINGS: Trace right convex scoliosis, possibly positional. Normal lordosis. No fracture, compression deformity, traumatic subluxation, or suspicious bone lesion. There is normal alignment. Minimal disc degeneration noted diffusely most significant at L5-S1. Normal facet alignment without significant facet arthropathy. SI joints demonstrate mild periarticular sclerosis right greater than left, possibly indicating underlying inflammatory arthropathy. Correlation with pelvic CT may be of benefit. The sacrum appears intact. Sacral arches are intact. The coccyx is unremarkable in appearance. No soft tissue abnormalities. XR/XR sacrum coccyx min 2V IMPRESSION: 1. No acute findings of the lumbar spine or sacrum. Very mild degenerative spondylosis. 2. SI joint findings which may represent inflammatory arthritis. Correlation with bony pelvic CT may be of benefit. Electronically signed by: Noel Cordova MD 05/28/2024 01:08 PM EDT RP Dictated By: Noel Cordova MD Signed By: <Electronically signed by Noel Cordova MD in [place]> 05/28/24 1308 Prescriptions: New prednisone 20 mg tablet 40 mg PO DAILY 5 Days Qty: 10 0RF ketorolac 10 mg tablet 10 mg PO Q6H PRN (Reason: pain) 5 Days Qty: 20 0RF Rx Instructions: received 30mg IM in the ED No Action ibuprofen 600 mg tablet 600 mg PO Q6H PRN (Reason: pain) Qty: 40 0RF cephalexin 500 mg capsule 500 mg PO Q6H 7 Days Qty: 28 0RF doxycycline hyclate 100 mg tablet 100 mg PO BID 7 Days Qty: 14 0RF polyethylene glycol 3350 [Miralax] 17 gram/dose powder 17 g PO DAILY Qty: 510 0RF hydrocortisone acetate [Anusol-HC] 25 mg suppository 25 mg IA BEDTIME Qty: 12 0RF Referrals: Jn Sousa MD [Primary Care Provider] - (Back pain) Stand Alone Forms: Work/School Release Interventions: ED Discharge Assessment Last Done: 05/28/24 14:07 Discharge Date/Time: 05/28/24 14:07 Print Language: Anguillan
[2024-05-28] MEDS: predniSONE 20 MG TABLET 40 MG PO (13:59)
[2024-05-28] MEDS: Ketorolac Tromethamine 30 MG/ML VIAL IM (13:59)
[2024-05-28 14:02] VITALS: BP 131/68; PULSE 76; RESP 18; O2SAT 97
[2024-05-28 14:07] VITALS: BP 131/68; PULSE 76; RESP 18; TEMP 36.1; O2SAT 97
--- OUTSIDE RECORDS SUMMARY | 2024-05-28 14:57 | XMS_ITS | Encounter Summary ---
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 Phone Jn Sousa MD Primary Care Provider [phone] Reason for Visit * Reason Onset Date Comments PRIOR AUTHORIZATION 04/25/2024 Encounter Details Date Type Department Care Team (Late st Contact Info) Description 04/25/2024 Telephone Endocrinology - [place] [address] [place] [phone] Noemi Flores PA [address] [place] [address] PRIOR AUTHORIZATION Social History Tobacco Use Types Packs/Day Years Used Date Smoking Tobacco: Former Cigarettes Q uit: 12/30/2023 Smokeless Tobacco: Never Alcohol Use Standard Drinks/Week Comments No 0 (1 standard drink = 0.6 oz pur e alcohol) Interpersonal Safety Answer Date Record ed Physical Abuse 01/12/2024 Verbal Abuse 01/12/2024 Sex and Gender Information Value Date Recorded Sex Assigned at Male 12/22/2023 11:54 AM EDT Legal Sex Male 5:47 AM EST Gender Identity Male 12/22/2023 11:54 AM EDT Sexual Orientation Straight 12/22/2023 11 :54 AM EDT documented as of this encounter Functional Status * Are you deaf or do you have serious difficulty hearing? Answer Date of Assessment Author No 01/22/2024 12:04 AM EST Loretta Bonner RN * Are you blind or do you have serious difficulty seeing, even when wearing glasses? Answer Date of Assessment Author No 01/22/2024 12:04 AM Loretta Agustin RN * Do you have serious difficulty walking or climbing stairs? Answer Date of Assessment Author No 01/22/2024 12:04 AM Loretta Agustin RN * Do you have serious difficulty dressing or bathing? Answer Date of Assessment Author No 01/22/2024 12:04 AM Loretta Agustin RN * Because of a physical, mental, or emotional condition, do you have serious difficulty doing errandsalone such as visiting the doctor? Answer Date of Assessment Author No 01/22/2024 12:04 AM Loretta Agustin RN documented as of this encounter Mental Status * Because of a physical, mental, or emotional condition, do you have serious difficulty concentrating, remembering, or making decisions? (5 years old or older) Answer Entry Date Author No 01/22/2024 12:04 AM Loretta Agustin RN documented in this encounter Progress Notes * Arely Hays [place] - 05/03/2024 2:01 PM EST Pt is on the [employer]. Paid claim on 04/27/24 This is all set. * Amelie Millan - 04/25/2024 12:41 PM EST Prior Authorization for Medication-do not complete and send this encounter unless you have the fax from the pharmacy. Is this a Cover My Meds request: Yes -- [place] Code [id number] Name of Medication INSULIN GLARGINE-YFGN 100U/ML Dose of Medication 100U/ML What is the RX # from the faxed refill? N/A How does patient take this med? N/A What Pharmacy did the fax come from: [facility] Pharm[facility] fax #: [phone] documented in this encounter Plan of Treatment Upcoming Encounters Date Type Department Care Team (Late st Contact Info) Description 06/08/2024 9:40 AM EDT Office Visit Endocrinology [facility] [place], [place] [address] [place] [address] Noemi Flores PA [address] [place] [address] 07/02/2024 10:00 AM EDT Office Visit Internal Medicine - [place] [address] [phone] Jn Sousa MD [address] [address] 07/09/2024 8:00 AM EDT Office Visit General Surgery - [place] 175 [facility] [address] [place] [phone] Rajesh Silva MD [address] [phone] documented as of this encounter Visit Diagnoses Not on filedocumented in this encounter Care Teams Freight Car Repairer Relationship Specialty Start Date End Date Jn Sousa MD [address] [address] PCP - General Internal Medicine 12/30/23 documented as of this encounter
--- OUTSIDE RECORDS SUMMARY | 2024-05-28 14:57 | XMS_ITS | Clinical Summary ---
Author Organization [address] [facility] Address [address] [place] [address] Phone Care Team Providers Care Stores Laborer Name Role Phone Jn Sousa MD Primary Care Provider [phone] Allergies No known active allergies Medications alcohol swabs pads, medicated USE BEFORE CHECKING GLUCOSE 3 TIMES A DAY AND BEFORE INJECTING INSULIN DAILY 4 Active polyethylene glycol (Gavilax) 17 gram/dose oral powder MIX 17 GRAMS DISSOLVED IN WATER AND DRINK BY MOUTH ONCE DAILY 4 Active pen needle, diabetic 31 gauge x 5/16 needle Use one to administer Insulin once daily 4 Active albuterol HFA (Ventolin HFA) 90 mcg/actuation inhaler INHALE 2 PUFFS INTO THE LUNGS 4 TIMES DAILY NEEDED FOR COUGH OR WHEEZING. 4 Active pantoprazole (PROTONIX) 40 mg EC tablet Take 1 tablet (40 mg total) by mouth 1 (one) time each day. Do not crush, chew, or split. 30 each 5 4 07/01/19 25 Active acetaminophen (TYLENOL) 500 mg tablet Take 2 tablets (1,000 mg total) by mouth every 8 (eight) hours. 24 tablet 4 Active docusate sodium (COLACE) 100 mg capsule Take 1 capsule (100 mg total) by mouth 2 (two) times a day. 14 each 4 Active clotrimazole (LOTRIMIN) 1 % cream Apply topically 2 (two) times a day. 30 g 5 5 Active freestyle (FreeStyle Lancets) 28 gauge lancetsIndication s:Uncontrolled type 2 diabetes mellitus with hyperglycemia (CMS/HCC) Test sugars twice daily E11.9 200 each 2 5 Active glucose blood test stripIndications: Uncontrolled type 2 diabetes mellitus with hyperglycemia (CMS/HCC) Test sugars twice daily E11.9 200 each 2 5 Active blood-glucose meter kitIndications:Un controlled type 2 diabetes mellitus with hyperglycemia (CMS/HCC) Test sugars twice daily E11.9 1 kit 1 5 Active blood-glucose sensor (FreeStyle Candace 3 Sensor) deviceIndications :Uncontrolled type 2 diabetes mellitus with hyperglycemia (CMS/HCC) Box = Kit = EA, use one sensor every 14 days. 2 each 3 5 Active insulin lispro (HumaLOG KwikPen Insulin) 100 unit/mL injection pen Use three times a day: <100: 0 units, 101-150: 6 units, 151-200: 8 units, 201-250: 10 units, 251-300: 12 units, 301-350: 13 units, 351-400: 14 units, >400: call me 5 Active atorvastatin (LIPITOR) 20 mg tablet Take 1 tablet (20 mg total) by mouth 1 (one) time each day. 30 each 11 5 04/25/19 26 Active insulin glargine (Lantus Solostar U-100 Insulin) 100 unit/mL (3 mL) injection pen Use 35 units at bedtime daily 30 mL 2 5 Active Active Problems Problem Noted Date Diagnosed Date Anal fissure 01/22/2024 Anal fistula, unspecified 12/22/2023 Syphilis 11/26/2021 Overview (12/23/2023): Treated with doxy bid for 28 days as no showed his injections. Umbilical hernia without obstruction and without gangrene 10/30/2020 Uncontrolled type 2 diabetes mellitus with hyper glycemia 10/30/2020 COVID-19 virus infection 10/15/2020 Overview (12/23/2023): 07/04/2020 [facility] ED Constipation 06/03/2020 Overview (12/23/2023): Last Assessment & Plan: Used prune juice Hepatic steatosis 05/26/2020 GERD (gastroesophageal reflux disease) 9 Overview (12/23/2023): Was in [facility] ER? On zantac Hypertriglyceridemia 12/19/2018 Bipolar 2 disorder 11/05/2018 Overview (12/23/2023): Is not on any treatment in the past. He just took as needed Ambien in the past. Depression 10/17/2018 Encounters Date Type Department Care Team Description 04/25/2024 8:40 AM EST Consult Endocrinology - [address] [phone] Noemi Flores PA Uncontrolled type 2 diabetes mellitus with hyperglycemia (CMS/HCC) (Primary Dx); Hyperglycemia; Candidal balano-posthitis 04/25/2024 Telephone Endocrinology - [address] [phone] Noemi Flores PA PRIOR AUTHORIZATION 04/25/2024 Telephone Endocrinology - [address] [phone] Noemi Flores PA PRIOR AUTHORIZATION 04/02/2024 8:45 AM EST Office Visit General Surgery - [address] [place] [address] Rajesh Silva MD Anal fistula (Primary Dx) 03/02/2024 10:00 AM EST Office Visit Internal Medicine - [place] [address] [facility] [address] [place] [address] Jn Sousa MD Hyperglycemia (Primary Dx); Uncontrolled type 2 diabetes mellitus with hyperglycemia (CMS/HCC); Candidal balano-posthitis from Last 3 Months Immunizations Name Administration Dates Next Due Influenza Quadravalent, MDCK , 0.5ml, preservative free (Flucelvax) 6mo and older 11/26/2021,11/17/2020,11/02/2018 Influenza Quadravalent, MDCK , 0.5ml, with preservative (Flucelvax) 6mo and older 12/06/2019 Influenza trivalent, 0.5mL, preservative free (Fluarix; FluLaval; Fluzone) ages 6mo and older (Afluria) 3 years and older 10/30/2019 Tdap Tetanus diptheria acell ular pertussis (Boostrix; Adacel) 7yo and older 10/06/2023 Surgical History Surgery Date Site/Laterality Comments UPPER GASTROINTESTINAL ENDOSCOPY ABSCESS DRAINAGE michelle-anal Medical History Medical History Date Comments Depression 10/17/2018 DX:Depression History of suicide attempt 10/17/2018 DX:Hi story of suicide attempt GERD (gastroesophageal reflux disease) Diabetes mellitus (CMS/HCC) Asthma Anal fistula Family History Medical History Relation Name Comments Diabetes Mother Other: blood cancer Other Relation Name Status Comments Father Other Mother (Age 40) Other Social History Tobacco Use Types Packs/Day Years Used Date Smoking Tobacco: Former Cigarettes Q uit: 12/30/2023 Smokeless Tobacco: Never Tobacco Cessation:Counseling Given: Not Answered Alcohol Use Standard Drinks/Week Comments No 0 [...] Orientation Straight 12/22/2023 11 :54 AM EDT Obstetrics History Last Filed Vital Signs Vital Sign Reading Time Taken Comments Blood Pressure 120/60 04/25/2024 8:51 AM EST Pulse 80 04/25/2024 8:51 AM EST Temperature 36.3 ??C (97.3 ??F) 04/25/2024 8:51 AM ES T Respiratory Rate 16 04/25/2024 8:51 AM EST Oxygen Saturation 98% 04/25/2024 8:51 AM EST Inhaled Oxygen Concentration - - Weight 93 kg (205 lb) 04/25/2024 8:51 AM EST Height 170.2 cm (5' 7 ) 04/25/2024 8:51 AM EST Body Mass Index 32.11 04/25/2024 8:51 AM EST Plan of Treatment Upcoming Encounters Date Type Department Care Team (Late st Contact Info) Description 06/08/2024 9:40 AM EDT Office Visit Endocrinology [facility] [address] [place] [address] Noemi Flores PA [address] [place] [address] 07/02/2024 10:00 AM EDT Office Visit Internal Medicine - [place] [address] [phone] Jn Sousa MD [address] [address] 07/09/2024 8:00 AM EDT Office Visit General Surgery - [place] [address] [facility] [address] [place] [address] Rajesh Silva MD [address] [address] Health Maintenance Due Date Last Done Comments Diabetes: Annual Foot Exam 05/07/1995 Diabetes: Annual Retina Eye Exam 05/07/1995 Hepatitis B Vaccines (1 of 3 - 19+ 3-dose series) 2004 Pneumococcal Vaccine: Pediatrics (0 to 5 Years) and At-Risk Patients (6 to 64 Years) (1 of 2 - PCV) 2004 Depression Screening 01/31/2022 Social Influencers of Health Screening 01/31/2022 COVID-19 Vaccine ( season) 2023 11/01/2020, 10/04/2020 Influenza Vaccine (#1) 2023 2, 11/17/2020, 12/06/2019, Additional history exists Diabetes: Annual Urine Albumin-Creatinine Ratio (uACR) 10/05/2024 10/06/2023 Diabetes: Blood Sugar Control Test (HGBA1C) 10/23/2024 04/25/2024, 10/06/2023, 10/06/2023 Diabetes: Annual GFR (Glomerular Filtration Rate) 04/25/2025 04/25/2024, 01/21/2024, 10/06/2023, Additional history exists Cholesterol Screening (Lipid Panel) 04/25/2029 04/25/2024, 04/25/2024, 10/06/2023, Additional history exists DTaP,Tdap,and Td Vaccines (2 - Td or Tdap) 10/05/2033 10/06/2023 HIV Screening Completed 10/13/2022 Hepatitis C Screening Completed 10/13/2022 HIB Vaccines Aged Out No longer eligi ble based on patient's age to complete this topic HPV Vaccines Aged Out No longer eligi ble based on patient's age to complete this topic Hepatitis A Vaccines Aged Out No long er eligible based on patient's age to complete this topic IPV Vaccines Aged Out No longer eligi ble based on patient's age to complete this topic MMR Vaccines Aged Out No longer eligi ble based on patient's age to complete this topic Meningococcal ACWY Vaccine Aged Out N o longer eligible based on patient's age to complete this topic Meningococcal B Vacine Aged Out No lo nger eligible based on patient's age to complete this topic RSV Immunization Patients Under 20 months Aged Out No longer eligible based on patient's age to complete this topic Varicella Vaccines Aged Out No longer eligible based on patient's age to complete this topic Procedures Procedure Name Priority Date/Time Associated Diagnosis Comments LDL CHOLESTEROL, DIRECT Routine 04/25/2024 9:39 AM EST Bipolar 2 disorder (CMS/HCC) Routine general medical examination at a health care facility Gastroesophageal reflux disease, unspecified whether esophagitis present Depression, unspecified depression type Anal fistula, unspecified Constipation, unspecified constipation type Uncontrolled type 2 diabetes mellitus with hyperglycemia (CMS/HCC) Hypertriglyceridemia Hepatic steatosis THYROXINE FREE Routine 04/25/2024 9:39 AM EST Bipolar 2 disorder (CMS/HCC) Routine general medical examination at a health care facility Gastroesophageal reflux disease, unspecified whether esophagitis present Depression, unspecified depression type Anal fistula, unspecified Constipation, unspecified constipation type Uncontrolled type 2 diabetes mellitus with hyperglycemia (CMS/HCC) Hypertriglyceridemia Hepatic steatosis LIPID PANEL WITH REFLEX TO DIRECT LDL Routine 04/25/2024 9:39 AM EST Bipolar 2 disorder (CMS/HCC) Routine general medical examination at a health care facility Gastroesophageal reflux disease, unspecified whether esophagitis present Depression, unspecified depression type Anal fistula, unspecified Constipation, unspecified constipation type Uncontrolled type 2 diabetes mellitus with hyperglycemia (CMS/HCC) Hypertriglyceridemia Hepatic steatosis THYROID STIMULATING HORMONE Routine 04/25/2024 9:39 AM EST Bipolar 2 disorder (CMS/HCC) Routine general medical examination at a health care facility Gastroesophageal reflux disease, unspecified whether esophagitis present Depression, unspecified depression type Anal fistula, unspecified Constipation, unspecified constipation type Uncontrolled type 2 diabetes mellitus with hyperglycemia (CMS/HCC) Hypertriglyceridemia Hepatic steatosis CBC WITH AUTO DIFFERENTIAL Routine 04/25/2024 9:39 AM EST Bipolar 2 disorder (CMS/HCC) Routine general medical examination at a health care facility Gastroesophageal reflux disease, unspecified whether esophagitis present Depression, unspecified depression type Anal fistula, unspecified Constipation, unspecified constipation type Uncontrolled type 2 diabetes mellitus with hyperglycemia (CMS/HCC) Hypertriglyceridemia Hepatic steatosis CBC AND DIFFERENTIAL Routine 04/25/2024 9:39 AM EST Bipolar 2 disorder (CMS/HCC) Routine general medical examination at a health care facility Gastroesophageal reflux disease, unspecified whether esophagitis present Depression, unspecified depression type Anal fistula, unspecified Constipation, unspecified constipation type Uncontrolled type 2 diabetes mellitus with hyperglycemia (CMS/HCC) Hypertriglyceridemia Hepatic steatosis MAGNESIUM Routine 04/25/2024 9:39 AM EST Bipolar 2 disorder (CMS/HCC) Routine general medical examination at a health care facility Gastroesophageal reflux disease, unspecified whether esophagitis present Depression, unspecified depression type Anal fistula, unspecified Constipation, unspecified constipation type Uncontrolled type 2 diabetes mellitus with hyperglycemia (CMS/HCC) Hypertriglyceridemia Hepatic steatosis COMPREHENSIVE METABOLIC PANEL Routine 04/25/2024 9:39 AM EST Bipolar 2 disorder (CMS/HCC) Routine general medical examination at a health care facility Gastroesophageal reflux disease, unspecified whether esophagitis present Depression, unspecified depression type Anal fistula, unspecified Constipation, unspecified constipation type Uncontrolled type 2 diabetes mellitus with hyperglycemia (CMS/HCC) Hypertriglyceridemia Hepatic steatosis HEMOGLOBIN A1C Routine 04/25/2024 9:39 AM EST Bipolar 2 disorder (CMS/HCC) Routine general medical examination at a health care facility Gastroesophageal reflux disease, unspecified whether esophagitis present Depression, unspecified depression type Anal fistula, unspecified Constipation, unspecified constipation type Uncontrolled type 2 diabetes mellitus with hyperglycemia (CMS/HCC) Hypertriglyceridemia Hepatic steatosis URINE ALBUMIN CREATININE RATIO Routine 10/06/2023 HEPATITIS C SCREENING Routine 10/13/2022 HIV SCREENING Routine 10/13/2022 from Last 3 Months or Most Recently Relevant to Health Maintenance Results * (ABNORMAL) Lipid panel with reflex to direct LDL (04/25/2024 9:39 AM EST) Cholesterol 219(H) 0 - 200 mg/dL LAB CHEMISTRY METHOD 04/25/2024 1:46 PM [facility] Triglycerides 787(H) 0 - 150 mg/dL LAB CHEMISTRY METHOD 04/25/2024 1:46 PM [facility] Comment:Results verified by repeat testing HDL 34(L) >=40 mg/dL LAB CHEMISTRY METHOD 04/25/2024 1:46 PM [facility] LDL Calculated LAB CHEMISTRY METHOD 04/25/2024 1:46 PM [facility] Comment: Unable to calculate when triglycerides >400 mg/dL. Triglyceride value is >= 500. ??Calculated LDL is not meaningful. ??Direct LDL has been added. VLDL Cholesterol Schuyler LAB CHEMISTRY METHOD 04/25/2024 1:46 PM [facility] Comment:Unable to calculate when triglycerides >400 mg/dL. Non HDL Chol. (LDL+VLDL) LAB CHEMISTRY METHOD 04/25/2024 1:46 PM [facility] Comment:Unable to calculate when triglycerides >400 mg/dL. Chol/HDL Ratio 6.4(H) 0.0 - 4.4 LAB CHEMISTRY METHOD 04/25/2024 1:46 PM [facility] Blood Venous blood specimen / Unknown Venipuncture / Unknown 04/25/2024 9:39 AM EST 04/25/2024 9:39 AM EST us Bernard Leblanc MD LAB BLOOD ORDERABLES Final Resul t [facility] [address] [place] [address], * (ABNORMAL) CBC auto differential (04/25/2024 9:39 AM EST) WBC 6.5 4.8 - 10.8 K/mcL LAB HEMETOLOGY METHOD 04/25/2024 12:29 PM [facility] RBC 5.00 4.50 - 5.50 M/mcL LAB HEMETOLOGY METHOD 04/25/2024 12:29 PM [facility] Hemoglobin 14.7 13.5 - 17.5 g/dL LAB HEMETOLOGY METHOD 04/25/2024 12:29 PM [facility] Hematocrit 43.2 42.0 - 54.0 % LAB HEMETOLOGY METHOD 04/25/2024 12:29 PM [facility] MCV 87.1 79.0 - 98.0 FL LAB HEMETOLOGY METHOD 04/25/2024 12:29 PM [facility] MCH 29.6 27.0 - 32.0 pcg LAB HEMETOLOGY METHOD 04/25/2024 12:29 PM [facility] MCHC 34.0 32.0 - 37.0 g/dL LAB HEMETOLOGY METHOD 04/25/2024 12:29 PM [facility] RDW 11.9 11.0 - 15.0 % LAB HEMETOLOGY METHOD 04/25/2024 12:29 PM [facility] Platelets 214 130 - 400 K/mcL LAB HEMETOLOGY METHOD 04/25/2024 12:29 PM [facility] MPV 11.9(H) 7.0 - 11.0 FL LAB HEMETOLOGY METHOD 04/25/2024 12:29 PM [facility] NRBC 0.0 <1.0 % LAB HEMETOLOGY METHOD 04/25/2024 12:29 PM [facility] NRBC Absolute 0.00 <0.10 K/mcL LAB HEMETOLOGY METHOD 04/25/2024 12:29 PM [facility] Neutrophils Relative 62.4 % LAB HEMETOLOGY METHOD 04/25/2024 12:29 PM [facility] Lymphocytes Relative 28.3 % LAB HEMETOLOGY METHOD 04/25/2024 12:29 PM [facility] Monocytes Relative 7.3 % LAB HEMETOLOGY METHOD 04/25/2024 12:29 PM [facility] Eosinophils Relative 0.9 % LAB HEMETOLOGY METHOD 04/25/2024 12:29 PM [facility] Basophils Relative 0.6 % LAB HEMETOLOGY METHOD 04/25/2024 12:29 PM [facility] Immature Granulocytes Relative 0.5 % LAB HEMETOLOGY METHOD 04/25/2024 12:29 PM [facility] Neutrophils Absolute 4.08 1.50 - 7.00 K/mcL LAB HEMETOLOGY METHOD 04/25/2024 12:29 PM [facility] Lymphocytes Absolute 1.85 1.00 - 5.00 K/mcL LAB HEMETOLOGY METHOD 04/25/2024 12:29 PM [facility] Monocytes Absolute 0.48 0.20 - 1.00 K/mcL LAB HEMETOLOGY METHOD 04/25/2024 12:29 PM EST [facility] Eosinophils Absolute 0.06 0.00 - 0.50 K/[facility] LAB HEMETOLOGY METHOD 04/25/2024 12:29 PM EST [facility] Basophils Absolute 0.04 0.00 - 0.20 K/[facility] LAB HEMETOLOGY METHOD 04/25/2024 12:29 PM EST [facility] Immature Granulocytes Absolute 0.03 0.00 - 0.03 K/[facility] LAB HEMETOLOGY METHOD 04/25/2024 12:29 PM EST [facility] Blood Venous blood specimen / Unknown Venipuncture / Unknown 04/25/2024 9:39 AM EST 04/25/2024 9:39 AM EST Bernard Leblanc MD LAB BLOOD ORDERABLES Final Resul t Performing Organization Address City/[facility]/ZIP Co de Phone Number [facility] [address] [place] [address], * Thyroid stimulating hormone (04/25/2024 9:39 AM EST) TSH 1.01 0.40 - 4.00 mcIU/mL LAB CHEMISTRY METHOD 04/25/2024 1:08 PM EST [facility] Blood Venous blood specimen / Unknown Venipuncture / Unknown 04/25/2024 9:39 AM EST 04/25/2024 9:39 AM EST Bernard Leblanc MD LAB BLOOD ORDERABLES Final Resul t [facility] [address] [place] [address], * Thyroxine free (04/25/2024 9:39 AM EST) Free T4 1.26 0.70 - 1.80 ng/dL LAB CHEMISTRY METHOD 04/25/2024 1:07 PM EST [facility] Blood Venous blood specimen / Unknown Venipuncture / Unknown 04/25/2024 9:39 AM EST 04/25/2024 9:39 AM EST Bernard Leblanc MD LAB BLOOD ORDERABLES Final Resul t [facility] [address] [place] [address], [place] [phone] * Magnesium (04/25/2024 9:39 AM EST) Magnesium 1.9 1.9 - 2.6 mg/dL LAB CHEMISTRY METHOD 04/25/2024 1:07 PM EST [facility] Blood Venous blood specimen / Unknown Venipuncture / Unknown 04/25/2024 9:39 AM EST 04/25/2024 9:39 AM EST Bernard Leblanc MD LAB BLOOD ORDERABLES Final Resul t Performing Organization Address City/[facility]/ZIP Co de Phone Number [facility] [address] [place] [address], [place] [phone] * LDL cholesterol, direct (04/25/2024 9:39 AM EST) Pathologist [facility] LDL Direct 73 <=100 mg/dL LAB CHEMISTRY METHOD 04/25/2024 1:57 PM EST [facility] Blood Venous blood specimen / Unknown Venipuncture / Unknown 04/25/2024 9:39 AM EST 04/25/2024 9:39 AM EST Bernard Leblanc MD LAB BLOOD ORDERABLES Final Resul t [facility] [address] [place] [address], [place] [phone] * (ABNORMAL) Hemoglobin A1c (04/25/2024 9:39 AM EST) Hemoglobin A1C 11.2(H) <6.5 % LAB CHEMISTRY METHOD 04/25/2024 9:50 PM [facility] Mean Bld Glu Estim. 275 mg/dL LAB CHEMISTRY METHOD 04/25/2024 9:50 PM [facility] Blood Venous blood specimen / Unknown Venipuncture / Unknown 04/25/2024 9:39 AM EST 04/25/2024 9:39 AM EST us Bernard Leblanc MD LAB BLOOD ORDERABLES Final Resul t [facility] [address] [place] [address], * (ABNORMAL) Comprehensive metabolic panel (04/25/2024 9:39 AM EST) Sodium 138 133 - 145 mmol/L LAB CHEMISTRY METHOD 04/25/2024 1:18 PM [facility] Potassium 4.0 3.5 - 5.5 mmol/L LAB CHEMISTRY METHOD 04/25/2024 1:18 PM [facility] Chloride 104 96 - 110 mmol/L LAB CHEMISTRY METHOD 04/25/2024 1:18 PM [facility] CO2 22 21 - 32 mmol/L LAB CHEMISTRY METHOD 04/25/2024 1:18 PM [facility] Anion Gap 12(H) 3 - 11 LAB CHEMISTRY METHOD 04/25/2024 1:18 PM [facility] Glucose 228(H) 70 - 100 mg/dL LAB CHEMISTRY METHOD 04/25/2024 1:18 PM [facility] BUN 8 5 - 25 mg/dL LAB CHEMISTRY METHOD 04/25/2024 1:18 PM [facility] Creatinine 0.87 0.70 - 1.30 mg/dL LAB CHEMISTRY METHOD 04/25/2024 1:18 PM [facility] eGFR 113 >=60 mL/min/1. 73m2 LAB CHEMISTRY METHOD 04/25/2024 1:18 PM [facility] Comment:Calculation based on the??Chronic Kidney Disease Epidemiology Collaboration (CKD-EPI) equation refit??without adjustment for race. BUN/Creatinine Ratio 9.2 LAB CHEMISTRY METHOD 04/25/2024 1:18 PM [facility] Calcium 9.4 8.5 - 10.5 mg/dL LAB CHEMISTRY METHOD 04/25/2024 1:18 PM [facility] AST (SGOT) 28 10 - 42 unit/L LAB CHEMISTRY METHOD 04/25/2024 1:18 PM [facility] ALT (SGPT) 53 10 - 60 unit/L LAB CHEMISTRY METHOD 04/25/2024 1:18 PM [facility] Alkaline Phosphatase 94 42 - 121 unit/L LAB CHEMISTRY METHOD 04/25/2024 1:18 PM [facility] Total Protein 7.5 6.0 - 8.0 g/dL LAB CHEMISTRY METHOD 04/25/2024 1:18 PM [facility] Albumin 4.0 3.2 - 5.0 g/dL LAB CHEMISTRY METHOD 04/25/2024 1:18 PM [facility] Total Bilirubin 0.4 0.0 - 1.4 mg/dL LAB CHEMISTRY METHOD 04/25/2024 1:18 PM [facility] Blood Venous blood specimen / Unknown Venipuncture / Unknown 04/25/2024 9:39 AM EST 04/25/2024 9:39 AM EST us Bernard Leblanc MD LAB BLOOD ORDERABLES Final Resul t [facility] [address] [place] [address], * Urine Albumin Creatinine Ratio (10/06/2023) Urine Albumin Creatinine Ratio Abstracted [facility] Provider HEALTH MAINTENANCE Final Result * HIV Screening (10/13/2022) [facility] HIV Screening Abstracted [facility] Provider HEALTH MAINTENANCE Final Result * Hepatitis C Screening (10/13/2022) Pathologist [facility] Hepatitis C Screening Abstracted [facility] Provider HEALTH MAINTENANCE Final Result from Last 3 Months or Most Recently Relevant to Health Maintenance Insurance MEDICAID - [place] Advance Directives * Full Code - Default (Latest Code Status on File) Date Activated Date Inactivated Comments 01/12/2024 11:31 AM 01/12/2024 5:51 PM This is o rder is used when code status has not been discussed with the patient, or code status is otherwise unknown/unconfirmed To update the patient's code status, place a code status order. Do not modify or discontinue any currently active code status orders. Care Teams Stores Laborer Relationship Specialty Start Date End Date Jn Sousa MD [address] [facility] [address] [place] [address] PCP - General Internal Medicine 12/30/23
== END 2024-05-28 14:07 | disposition home or self-care (01) ==
PROVIDERS: Emergency Provider Emergency Medicine; PCP Internal Medicine
DX: M54.16 Radiculopathy, lumbar region (principal); M46.1 Sacroiliitis, not elsewhere classified; M47.9 Spondylosis, unspecified; M53.3 Sacrococcygeal disorders, not elsewhere classified; M79.605 Pain in left leg
CPT/HCPCS: 72100; 72220; 96372; 99284; J1885

== ENCOUNTER → 2024-05-28 12:31 | Outpatient (BNV) | payer OTHER, SELFPAY | PROVIDERS: Emergency Provider Emergency Medicine; PCP Internal Medicine; Visit Provider Radiology Diagnostic Radiology | DX: M54.50 Low back pain, unspecified (principal) | CPT/HCPCS: 72100; 72220 ==

== ENCOUNTER 2025-02-06 14:39 | Emergency (ER) | payer OTHER, SELFPAY ==
[2025-02-06 14:47] VITALS: BP 116/86; PULSE 92; O2SAT 97
[2025-02-06 14:53] VITALS: BP 108/67; PULSE 97; RESP 20; TEMP 36.5; O2SAT 100; BMI 32.9
--- NOTE | 2025-02-06 14:54 | ED_ITS ---
HPI - Abdominal Pain General Chief Complaint: Abdominal Pain Stated Complaint: abd pain Related Data Previous Rx's ?Medication ?Instructions ?Recorded ibuprofen 600 mg tablet 600 mg PO Q6H PRN pain #40 t abs 12/20/21 hydrocortisone acetate 25 mg 25 mg NV BEDTIME #12 ea 0 05/04/23 rectal suppository (Anusol-HC) polyethylene glycol 3350 17 17 g PO DAILY #510 grams 0 05/04/23 gram/dose oral powder (Miralax) cephalexin 500 mg capsule 500 mg PO Q6H 7 days #28 cap s 08/17/23 doxycycline hyclate 100 mg tablet 100 mg PO BID 7 days #14 tabs 08/17/23 ketorolac 10 mg tablet 10 mg PO Q6H PRN pain 5 days #20 05/28/24 tabs prednisone 20 mg tablet 40 mg (2 x 20 mg) PO DAILY 5 days 05/28/24 #10 tabs Allergies Allergy/AdvReac Type Severity Reaction Status Date / Time No Known Allergies Allergy Verified 02/06/25 14:56 [facility] Social History Social History Advance Directives: No Advance Directives Information Provided: No Do you have a plan to hurt others: No Plan Physical Exam ED Vital Signs: BMI result Body Mass Index 32.9 Course Course Course Narrative: This is an RME: Additional HPI, ROS, PE not included below will be deferred to primary provider. RME assessment and note performed by: Lupe Philippe PA-C This is a 23-pok[age]-fyp-male, with a hx of DM, who presents to the ER via EMS with a complaint of abdominal pain, nausea, and vomiting. No constipation or diarrhea. Abd is soft, with ttp diffusely. Plan: Labs, UA, further ER eval needed Reevaluation(s) Reevaluation #1: Patient left without completing treatment. Medical Decision Making Lab Data 02/06/25 15:49 02/06/25 15:49 Labs: Lab Results 02/06/25 Range/Units 15:49 WBC 7.5 (4.8-10.8) X10*3/uL RBC 5.21 (4.60-5.80) X10*6/uL Hgb 16.1 (14.0-18.0) g/dl Hct 44.3 (42.0-52.0) % MCV 85.0 (80.0-98.0) fL MCH 30.9 (27.0-33.0) pg MCHC 36.3 H (31.0-36.0) g/dl RDW 12.0 (11.0-16.0) % Plt Count 231 (160-400) X10*3/uL MPV 11.0 (9.4-12.4) fL Immature Gran % (Auto) 0.5 H (0.0-0.4) % Neut % (Auto) 64.9 (45-73) % Lymph % (Auto) 27.2 (20-40) % [place] % (Auto) 6.1 (2-11) % Eos % (Auto) 0.9 (0-4) % Baso % (Auto) 0.4 (0-2) % Lymph # (Auto) 2.1 (1.2-4.9) X10*3/uL [place] # (Auto) 0.5 (0.1-1.2) X10*3/uL Eos # (Auto) 0.1 (0.0-0.4) X10*3/uL Baso # (Auto) 0.0 (0.0-0.2) X10*3/uL Abs Immat Gran (auto) 0.04 H (0.00-0.03) X10*3/uL Absolute Neuts (auto) 4.9 (2.0-8.3) x10*3/uL Absolute Nucleated RBC 0.000 (0.0-0.012) X10*3/uL Nucleated RBC % (auto) 0.0 (0.0-0.2) /100WBC Sodium 136 (135-145) mmol/L Potassium 4.2 (3.3-5.1) mmol/L Chloride 105 (96-108) mmol/L Carbon Dioxide 20 L (22-29) mmol/L Anion Gap 15 (12-20) BUN 13 (9-16) mg/dL Creatinine 0.83 (0.5-1.4) mg/dL Estim Creat Clear Calc 127.1 Estimated GFR > 60 Random Glucose 312 H (60-115) mg/dL Calcium 9.2 (8.4-10.2) mg/dL Magnesium 1.9 (1.6-2.6) mg/dL Total Bilirubin 0.4 (0.0-1.0) mg/dL Direct Bilirubin 0.1 (0.0-0.5) mg/dL AST 32 (5-37) U/L ALT 46 H (0-40) U/L Alkaline Phosphatase 78 (39-117) U/L Total Protein 7.4 (6.5-8.0) g/dL Albumin 4.4 (3.5-5.0) g/dL Lipase 50 (8-78) U/L Influenza Type A (PCR) NEGATIVE (Negative) Influenza Type B (PCR) NEGATIVE (Negative) RSV RNA Qual (PCR) NEGATIVE (Negative) SARS-CoV-2 RNA (RT-PCR) NEGATIVE (Negative) Discharge Plan Discharge Clinical Impression: Abdominal pain Patient Disposition: Left W/O Completing Treatment Prescriptions: No Action ibuprofen 600 mg tablet 600 mg PO Q6H PRN (Reason: pain) Qty: 40 0RF cephalexin 500 mg capsule 500 mg PO Q6H 7 Days Qty: 28 0RF doxycycline hyclate 100 mg tablet 100 mg PO BID 7 Days Qty: 14 0RF polyethylene glycol 3350 [Miralax] 17 gram/dose powder 17 g PO DAILY Qty: 510 0RF hydrocortisone acetate [Anusol-HC] 25 mg suppository 25 mg NV BEDTIME Qty: 12 0RF prednisone 20 mg tablet 40 mg PO DAILY 5 Days Qty: 10 0RF ketorolac 10 mg tablet 10 mg PO Q6H PRN (Reason: pain) 5 Days Qty: 20 0RF Rx Instructions: received 30mg IM in the ED Discharge Date/Time: 02/06/25 21:06
[2025-02-06 15:54] LABS: MANUAL DIFF FLAG NO
[2025-02-06 15:55] LABS: Hematocrit 44.3 % (42.0-52.0); Hemoglobin 16.1 g/dl (14.0-18.0); Imm Gran Abs Auto 0.04 X10*3/uL (0.00-0.03); Imm Gran Pct Auto 0.5 % (0.0-0.4); Lymphocytes Absolute Auto 2.1 X10*3/uL (1.2-4.9); Mean Corpuscular HGB Conc 36.3 g/dl (31.0-36.0); Mean Corpuscular Hemoglobin 30.9 pg (27.0-33.0); Mean Corpuscular Volume 85.0 fL (80.0-98.0); NRBC Abs Auto 0.000 X10*3/uL (0.0-0.012); NRBC Pct Auto 0.0 /100WBC (0.0-0.2); Platelet Count 231 X10*3/uL (160-400); Red Blood Count 5.21 X10*6/uL (4.60-5.80); White Blood Count 7.5 X10*3/uL (4.8-10.8)
[2025-02-06 16:36] LABS: Resp Syncy Virus RNA Qual PCR NEGATIVE (Negative); SARS COV2 PCR INHOUSE NEGATIVE (Negative)
[2025-02-06 16:52] LABS: Alanine Aminotransferase 46 U/L (0-40); Albumin Level 4.4 g/dL (3.5-5.0); Alkaline Phosphatase 78 U/L (39-117); Anion Gap 15 (12-20); Aspartate Amino Transferase 32 U/L (5-37); Blood Urea Nitrogen 13 mg/dL (9-16); Calcium 9.2 mg/dL (8.4-10.2); Carbon Dioxide 20 mmol/L (22-29); Chloride 105 mmol/L (96-108); Creatinine Clr Calc Pharmacy 127.1; Estimated Glomerular Filt Rate > 60; Lipase 50 U/L (8-78); Magnesium 1.9 mg/dL (1.6-2.6); Potassium 4.2 mmol/L (3.3-5.1); Sodium 136 mmol/L (135-145); Total Protein 7.4 g/dL (6.5-8.0)
--- OUTSIDE RECORDS SUMMARY | 2025-02-07 00:54 | XMS_ITS | Encounter Summary ---
Author Organization [email or web address] Address [address] [place] [address] Care Team Providers Care Custom Dressmaker Name Role Phone Jn Sousa MD Primary Care Provider [phone] Reason for Visit * Reason Comments Abdominal Pain Intermittent x a few days. Was just at [facility] but left d/t wait Encounter Details Date Type Department Care Team (Late st Contact Info) Description 02/07/2025 12:54 AM EST - Present Emergency [facility] Emergency [address] [place] [address] Social History Tobacco Use Types Packs/Day Years Used Date Smoking Tobacco: Former Cigarettes 0 Q uit: 12/30/2023 Smokeless Tobacco: Never Alcohol Use Standard Drinks/Week Comments No 0 (1 standard drink = 0.6 oz pur e alcohol) Interpersonal Safety Answer Date Record ed Physical Abuse Unrecognized value 01/12/2024 Verbal Abuse Unrecognized value 01/12/2024 Sex and Gender Information Value Date Recorded Sex Assigned at Male 12/22/2023 11:54 AM EDT Legal Sex Male 5:47 AM EST Gender Identity Male 12/22/2023 11:54 AM EDT Sexual Orientation Straight 12/22/2023 11 :54 AM EDT documented as of this encounter Last Filed Vital Signs Vital Sign Reading Time Taken Comments Blood Pressure 129/80 02/06/2025 10:37 PM EST Pulse 88 02/06/2025 10:37 PM EST Temperature 36.8 C (98.2 F) 02/06/2025 10:37 PM EST Respiratory Rate 18 02/06/2025 10:37 PM EST Oxygen Saturation 99% 02/06/2025 10:37 PM EST Inhaled Oxygen Concentration - - Weight 99.8 kg (220 lb) 02/06/2025 6:28 PM EST Height 167.6 cm (5' 6 ) 02/06/2025 6:28 PM EST Body Mass Index 35.51 02/06/2025 6:28 PM EST documented in this encounter Functional Status * Are you deaf or do you have serious difficulty hearing? Answer Date of Assessment Author No 01/22/2024 12:04 AM Loretta Agustin RN * Are you blind or do [...] 01/22/2024 12:04 AM Loretta Agustin RN * Calculated C-SSRS Risk Score (Lifetime/Recent) Answer Date of Assessment Author No Risk Indicated 02/06/2025 6:31 PM Lance Hu RN * [place] Suicide Severity Rating Scale (Screener/Recent Self-Report) Question Answer Date of Assessment Author 1. Wish to be (Past 1 Month) No 025 6:31 PM Melanie Hu RN 2. Non-Specific Active Suici silas Thoughts (Past 1 Month) No 02/06/2025 6:31 PM Nik Hu RN 6. Suicidal Behavior (Lifetime) No 6:31 PM Melanie Hu RN documented as of this encounter Mental Status * Because of a physical, mental, or emotional condition, do you have serious difficulty concentrating, remembering, or making decisions? (5 years old or older) Answer Entry Date Author No 01/22/2024 12:04 AM EST Loretta Bonner RN documented in this encounter Progress Notes * Melanie Duke RN - 02/06/2025 6:30 PM EST Patient with umbilical hernia for a long time. Today patient with more severe pain, feels a Lump around his umbilical area with pain radiating to his supra pubic area. Pain worsens with movement. documented in this encounter Plan of Treatment Upcoming Encounters Date Type Department Care Team (Late st Contact Info) Description 02/27/2025 7:30 AM EST Office Visit Endocrinology - [place] [address] [place] [address] Noemi Flores PA [address] [place] [address] 06/21/2025 8:45 AM EDT Office Visit Internal Medicine - [place] [address] [address] Jn Sousa MD [address] [address] documented as of this encounter Visit Diagnoses Not on filedocumented in this encounter Care Teams Custom Dressmaker Relationship Specialty Start Date End Date Jn Sousa MD [address] [address] PCP - General Internal Medicine 12/30/23 documented as of this encounter
--- OUTSIDE RECORDS SUMMARY | 2025-02-07 01:01 | XMS_ITS ---
Author Name [facility] Organization Unknown Care Team Organization Name Specialty Phone Email Start Date End Da te [facility] Lenny Ramirez DO Primary Care 05/05/202209/28 [facility] Juanito Shelby Primary Care 01/05/20222023
--- OUTSIDE RECORDS SUMMARY | 2025-02-07 01:01 | XMS_ITS | Clinical Summary ---
Author Organization [facility] Address [address] [place] [address] Phone Care Team Providers Care Bricklayer Supervisor Name Role Phone Jn Sousa MD Primary Care Provider Allergies No known active allergies Medications clotrimazole (LOTRIMIN) 1 % cream Apply topically 2 (two) times a day. 30 g 5 5 Active blood-glucose meter kitIndications:Un controlled type 2 diabetes mellitus with hyperglycemia ([facility] V24, [facility] V28) Test sugars twice daily E11.9 1 kit 1 5 Active blood-glucose sensor (FreeStyle Candace 3 Sensor) deviceIndications :Uncontrolled type 2 diabetes mellitus with hyperglycemia ([facility] V24, [facility] V28) Box = Kit = EA, use one sensor every 14 days. 2 each 3 5 Active alcohol swabs pads, medicated USE BEFORE CHECKING GLUCOSE 3 TIMES A DAY AND BEFORE INJECTING INSULIN DAILY 200 each 3 5 Active freestyle (FreeStyle Lancets) 28 gauge lancetsIndication s:Uncontrolled type 2 diabetes mellitus with hyperglycemia ([facility] V24, [facility] V28) Test sugars three times daily E11.9 200 each 5 5 Active glucose blood test stripIndications: Uncontrolled type 2 diabetes mellitus with hyperglycemia ([facility] V24, [facility] V28) Test sugars three times daily E11.9 200 each 5 5 Active pen needle, diabetic 31 gauge x /16 needle Use one to administer Insulin four times a day 200 each 3 5 Active insulin glargine (Lantus Solostar U-100 Insulin) 100 unit/mL (3 mL) injection pen Use 35 units at bedtime daily 30 mL 2 5 Active fenofibrate (LOFIBRA) 160 mg tablet Take 1 tablet (160 mg total) by mouth 1 (one) time each day. 90 tablet 1 5 Active pantoprazole (PROTONIX) 40 mg EC tablet Take 1 tablet (40 mg total) by mouth 1 (one) time each day before breakfast. 90 tablet 1 5 Active atorvastatin (LIPITOR) 20 mg tablet Take 1 tablet (20 mg total) by mouth 1 (one) time each day. 30 each 11 5 11/09/19 26 Active insulin lispro (HumaLOG KwikPen Insulin) 100 unit/mL injection pen Use three times a day: <100: 0 units, 101-150: 6 units, 151-200: 8 units, 201-250: 10 units, 251-300: 12 units, 301-350: 13 units, 351-400: 14 units, >400: call me 45 mL 2 5 Active albuterol HFA (Ventolin HFA) 90 mcg/actuation inhaler Inhale 2 puffs by mouth 4 (four) times a day. 6.7 g 2 5 Active acetaminophen (TYLENOL) 500 mg tablet Take 2 tablets (1,000 mg total) by mouth every 8 (eight) hours. 24 tablet 5 Active doxycycline (VIBRAMYCIN) 100 mg capsule Take with at least 8 ounces (large glass) of water, do not lie down for 30 minutes after. Administer 2 hours before or after multivitamins, antacids, or other products containing polyvalent cations (i.e., calcium, iron, magnesium, selenium, zinc). 1 p.o. twice daily for 10 days and then 1 p.o. daily for 30 days 50 each 5 Active Active Problems Problem Noted Date Diagnosed Date Anal fissure 01/22/2024 Anal fistula, unspecified 12/22/2023 Syphilis 11/26/2021 Overview (12/23/2023): Treated with doxy bid for 28 days as no showed his injections. Umbilical hernia without obstruction and without gangrene 10/30/2020 Uncontrolled type 2 diabetes mellitus with hyper glycemia 10/30/2020 COVID-19 virus infection 10/15/2020 Overview (12/23/2023): 07/04/2020 [facility] Constipation 06/03/2020 Overview (12/23/2023): Last Assessment & Plan: Used prune juice Hepatic steatosis 05/26/2020 GERD (gastroesophageal reflux disease) 9 Overview (12/23/2023): Was in [facility] ER? On zantac Hypertriglyceridemia 12/19/2018 Bipolar 2 disorder 11/05/2018 Overview (12/23/2023): Is not on any treatment in the past. He just took as needed Ambien in the past. Depression 10/17/2018 Encounters Date Type Department Care Team Description 02/07/2025 12:54 AM EST - Present Emergency [facility] Emergency [address] [place] [address] 12/21/2024 8:45 AM EDT Office Visit Internal Medicine - [place] 175 [facility] [address] [place] [address] Jn Sousa MD Adult general medical examination (Primary Dx); Hypertriglyceridemia; Type 2 diabetes mellitus with other specified complication, with long-term current use of insulin (CMS/HCC V24, CMS/HCC V28); Ulnar neuropathy of left upper extremity; Pain in both feet; Folliculitis; Need for prophylactic vaccination and inoculation against influenza 12/05/2024 9:30 AM EDT Office Visit Endocrinology [address] [address] Noemi Flores PA Uncontrolled type 2 diabetes mellitus with hyperglycemia (CMS/HCC V24, CMS/HCC V28) (Primary Dx); Hyperlipidemia, unspecified hyperlipidemia type from Last 3 Months Immunizations Immunization Administration Dates Next Due Influenza Quadravalent, MDCK , 0.5ml, preservative free (Flucelvax) 6mo and older 11/26/2021,11/17/2020,11/02/2018 Influenza Quadravalent, MDCK , 0.5ml, with preservative (Flucelvax) 6mo and older 12/06/2019 Influenza trivalent, 0.5mL, preservative free (Fluarix; FluLaval; Fluzone) ages 6mo and older (Afluria) 3 years and older 10/30/2019 Influenza trivalent, MDCK, 0 .5mL, preservative free (Flucelvax) 6mo and older 12/21/2024 Tdap Tetanus diptheria acell ular pertussis (Boostrix; Adacel) 7yo and older 10/06/2023 Surgical History Surgery Date Site/Laterality Comments UPPER GASTROINTESTINAL ENDOSCOPY ABSCESS DRAINAGE michelle-anal Medical History Medical History Date Comments Depression 10/17/2018 DX:Depression History of suicide attempt 10/17/2018 DX:Hi story of suicide attempt GERD (gastroesophageal reflux disease) Diabetes mellitus ([facility] V24, [facility] V28) Asthma Anal fistula Family History Medical History Relation Name Comments Diabetes Mother Other: blood cancer Other Relation Name Status Comments Father Other Mother (Age 40) Other Social History Tobacco Use Types Packs/Day Years Used Date Smoking Tobacco: Former Cigarettes 0 Q uit: 12/30/2023 Smokeless Tobacco: Never Tobacco [...] Orientation Straight 12/22/2023 11 :54 AM EDT Last Filed Vital Signs Vital Sign Reading [...] Mass Index 35.51 02/06/2025 6:28 PM EST Plan of Treatment Upcoming Encounters Date Type Department Care Team (Late st Contact Info) Description 02/27/2025 7:30 AM EST Office Visit Endocrinology - [place] [address] [place] [address] Noemi Flores PA [address] [place] [address] 06/21/2025 8:45 AM EDT Office Visit Internal Medicine - [place] 175 [facility] [address] [place] [address] Jn Sousa MD 175 [facility] [address] [place] [address] Health Maintenance Due Date Last Done Comments Diabetes: Annual Foot Exam 05/07/1995 Diabetes: Annual Retina Eye Exam 05/07/1995 Hepatitis B Vaccines (1 of 3 - 19+ 3-dose series) 2004 Pneumococcal Vaccine: Pediatrics (0 to 5 Years) and At-Risk Patients (6 to 49 Years) (1 of 2 - PCV) 2004 HPV Vaccines (1 - 3-dose SCDM series) 2012 Social Influencers of Health Screening 01/31/2022 Depression Screening 02/29/2024 Diabetes: Annual Urine Albumin-Creatinine Ratio (uACR) 10/05/2024 10/06/2023 Diabetes: Blood Sugar Control Test (HGBA1C) 10/23/2024 04/25/2024, 10/06/2023, 10/06/2023 COVID-19 Vaccine ( season) 2024 Diabetes: Annual GFR (Glomerular Filtration Rate) 04/25/2025 04/25/2024, 01/21/2024, 10/06/2023, Additional history exists Cholesterol Screening (Lipid Panel) 04/25/2029 04/25/2024, 04/25/2024, 10/06/2023, Additional history exists DTaP,Tdap,and Td Vaccines (2 - Td or Tdap) 10/05/2033 10/06/2023 RSV Immunization Adult Patients (1 - 1-dose 75+ series) 2060 HIV Screening Completed 10/13/2022 Hepatitis C Screening Completed 10/13/2022 Influenza Vaccine Completed 12/21/2024, , 11/17/2020, Additional history exists HIB Vaccines Aged Out No longer eligi [...] age to complete this topic Meningococcal B Vaccine Aged Out No l onger eligible based on patient's age to complete this topic RSV Immunization Patients Under 20 months Aged Out No longer eligible based on patient's age to complete this topic Varicella Vaccines Aged Out No longer eligible based on patient's age to complete this topic Procedures * The patient is currently admitted. The information in this section might not be complete until the patient is discharged. Procedure Name Priority Date/Time Associated Diagnosis Comments POC GLUCOSE Routine 12/05/2024 10:03 AM EDT Uncontrolled type 2 diabetes mellitus with hyperglycemia ([facility] V24, [facility] V28) COMPREHENSIVE METABOLIC PANEL Routine 04/25/2024 9:39 AM EST Bipolar 2 disorder (CMS/HCC V24, [facility] V28) Routine general medical examination at a [facility] care facility Gastroesophageal reflux disease, unspecified whether esophagitis present Depression, unspecified depression type Anal fistula, unspecified Constipation, unspecified constipation type Uncontrolled type 2 diabetes mellitus with hyperglycemia (CMS/HCC V24, [facility] V28) Hypertriglyceridemia Hepatic steatosis HEMOGLOBIN A1C Routine 04/25/2024 9:39 AM EST Bipolar 2 disorder ([facility] V24, [facility] V28) Routine general medical examination at a health care facility Gastroesophageal reflux disease, unspecified whether esophagitis present Depression, unspecified depression type Anal fistula, unspecified Constipation, unspecified constipation type Uncontrolled type 2 diabetes mellitus with hyperglycemia ([facility] V24, [facility] V28) Hypertriglyceridemia Hepatic steatosis LDL CHOLESTEROL, DIRECT Routine 04/25/2024 9:39 AM EST Bipolar 2 disorder ([facility] V24, [facility] V28) Routine general medical examination at a health care facility Gastroesophageal reflux disease, unspecified whether esophagitis present Depression, unspecified depression type Anal fistula, unspecified Constipation, unspecified constipation type Uncontrolled type 2 diabetes mellitus with hyperglycemia ([facility] V24, [facility] V28) Hypertriglyceridemia Hepatic steatosis URINE ALBUMIN CREATININE RATIO Routine 10/06/2023 HEPATITIS C SCREENING Routine 10/13/2022 HIV SCREENING Routine 10/13/2022 from Last 3 Months or Most Recently Relevant to Health Maintenance Results * POC glucose manually resulted (12/05/2024 10:03 AM EDT) Pathologist [facility] Glucose POC 315 mg/dL Blood Capillary blood specimen / Unknown 12/05/2024 10:03 AM EDT Noemi REAVES POINT OF CARE TEST ENTER/EDIT OR DERABLES Final Result * LDL cholesterol, direct (04/25/2024 9:39 AM EST) LDL Direct 73 <=100 mg/dL LAB CHEMISTRY METHOD 04/25/2024 1:57 PM EST [facility] Blood Venous blood specimen / Unknown Venipuncture / Unknown 04/25/2024 9:39 AM EST 04/25/2024 9:39 AM EST Bernard Leblanc MD LAB BLOOD ORDERABLES Final Resul t [facility] [address] [place] [address], [place] [phone] * (ABNORMAL) Hemoglobin A1c (04/25/2024 9:39 AM EST) Pathologist [facility] Hemoglobin A1C 11.2(H) <6.5 % LAB CHEMISTRY METHOD 04/25/2024 9:50 PM EST [facility] Mean Bld Glu Estim. 275 mg/dL LAB CHEMISTRY METHOD 04/25/2024 9:[address] [facility] Blood Venous blood specimen / Unknown Venipuncture / Unknown 04/25/2024 9:39 AM EST 04/25/2024 9:39 AM EST Bernard Leblanc MD LAB BLOOD ORDERABLES Final Resul t Performing Organization Address City/[facility]/ZIP Co de Phone Number [facility] [address] [place] [address], [place] [phone] * (ABNORMAL) Comprehensive metabolic panel (04/25/2024 9:39 AM EST) [facility] Sodium 138 133 - 145 mmol/L LAB CHEMISTRY METHOD 04/25/2024 1:[address] [facility] Potassium 4.0 3.5 - 5.5 mmol/L LAB CHEMISTRY METHOD 04/25/2024 1:[address] [facility] Chloride 104 96 - 110 mmol/L LAB CHEMISTRY METHOD 04/25/2024 1:[address] [facility] CO2 22 21 - 32 mmol/L LAB CHEMISTRY METHOD 04/25/2024 1:[address] [facility] Anion Gap 12(H) 3 - 11 LAB CHEMISTRY METHOD 04/25/2024 1:[address] [facility] Glucose 228(H) 70 - 100 mg/dL LAB CHEMISTRY METHOD 04/25/2024 1:[address] [facility] BUN 8 5 - 25 mg/dL LAB CHEMISTRY METHOD 04/25/2024 1:[address] [facility] Creatinine 0.87 0.70 - 1.30 mg/dL LAB CHEMISTRY METHOD 04/25/2024 1:[address] [facility] eGFR 113 >=60 mL/min/1. 73m2 LAB CHEMISTRY METHOD 04/25/2024 1:[address] [facility] Comment:Calculation based on the Chronic Kidney Disease Epidemiology Collaboration (CKD-EPI) equation refit without adjustment for race. BUN/Creatinine Ratio 9.2 LAB CHEMISTRY METHOD 04/25/2024 1:[address] [facility] Calcium 9.4 8.5 - 10.5 mg/dL LAB CHEMISTRY METHOD 04/25/2024 1:[address] [facility] AST (SGOT) 28 10 - 42 unit/L LAB CHEMISTRY METHOD 04/25/2024 1:[address] [facility] ALT (SGPT) 53 10 - 60 unit/L LAB CHEMISTRY METHOD 04/25/2024 1:[address] [facility] Alkaline Phosphatase 94 42 - 121 unit/L LAB CHEMISTRY METHOD 04/25/2024 1:[address] [facility] Total Protein 7.5 6.0 - 8.0 g/dL LAB CHEMISTRY METHOD 04/25/2024 1:[address] [facility] Albumin 4.0 3.2 - 5.0 g/dL LAB CHEMISTRY METHOD 04/25/2024 1:[address] [facility] Total Bilirubin 0.4 0.0 - 1.4 mg/dL LAB CHEMISTRY METHOD 04/25/2024 1:[address] [facility] Blood Venous blood specimen / Unknown Venipuncture / Unknown 04/25/2024 9:39 AM EST 04/25/2024 9:39 AM EST Bernard Leblanc MD LAB BLOOD ORDERABLES Final Resul t [facility] [address] [place] [address], [place] [phone] * Urine Albumin Creatinine Ratio (10/06/2023) Urine Albumin Creatinine Ratio Abstracted Historical Provider HEALTH MAINTENANCE Final Result * HIV Screening (10/13/2022) HIV Screening Abstracted Historical Provider HEALTH MAINTENANCE Final Result * Hepatitis C Screening (10/13/2022) Hepatitis C Screening Abstracted Historical Provider HEALTH MAINTENANCE Final Result from Last 3 Months or Most Recently Relevant to Health Maintenance Insurance [facility] Advance Directives * Full Code - Default [...] currently active code status orders. Care Teams Bricklayer Supervisor Relationship Specialty Start Date End Date Jn Sousa MD [address] [place] [id number] PCP - General Internal Medicine 12/30/23
== END 2025-02-06 21:06 | disposition left against medical advice (07) ==
LOC: HO.ED 20:43
PROVIDERS: Physician Assistant Medical; Emergency Provider Emergency Medicine
DX: R10.9 Unspecified abdominal pain (principal); R11.2 Nausea with vomiting, unspecified; Z03.818 Encounter for observation for suspected exposure to other biological agents ruled out
CPT/HCPCS: 80048; 80076; 83690; 83735; 85025; 87637; 99281; 99283